=== PATIENT | male | born 1965 | race Caucasian/White ===

== ENCOUNTER 2021-06-26 20:46 | Inpatient (IN) | payer MEDICAID ==
[~2021-06-26] VITALS: Ht 165.1 cm; Wt 59.0 kg
--- NOTE | 2021-06-26 20:48 | NUR ---
BIBA TAKEN TO BED #1
[2021-06-26 20:50] VITALS: BP 108/79
--- NOTE | 2021-06-26 20:50 | NUR ---
BIBA TO BED 1 WITH C/O GENERAL WEAKNESS X 2 DAYS. WAS SEEN AT [facility] [place] 2 DAYS AGO. PT DOES NOT RECALL IF HE WAS TESTED FOR COVID AND EXPLAINS HE HAS NOT RECEIVED COVID VACCINE. PATIENT IS ALERT AND ORIENTED AND DENIES PAIN OR DISCOMFORT AT THIS TIME. ATTACHED TO CM = ST WITHOUT ECTOPY. O2 SAT 92% ON R/A. PER EMT PT HAS HAD DECREASED APPETITE, DRINKING ONLY GATORADE. PMH : DENIES NKDA
[2021-06-26] MEDS ORDERED: NACL 0.9% 1,000 ML IV ONE (21:05)
--- NOTE | 2021-06-26 21:07 | NUR ---
DR HILL AT BEDSIDE FOR EXAM
[2021-06-26] MEDS ORDERED: DEXAMETHASONE 10 MG/ML VIAL IVP ONE (21:10)
[2021-06-26 22:04] LABS: BASOPHILS % (AUTO) 0.2 % (0.0-2.0); HEMATOCRIT 44.4 % (36-52); HEMOGLOBIN 15.3 g/dL (12.0-18.0); LYMPHOCYTES # (AUTO) 0.6 K/uL (2.0-11.5); LYMPHOCYTES % (AUTO) 8.4 % (20.5-51.1); MEAN CORPUSCULAR HEMOGLOBIN 32 pg (27-31); MEAN CORPUSCULAR HGB CONC 35 g/dL (33-37); MEAN CORPUSCULAR VOLUME 93.2 fL (80-94); MONOCYTES # (AUTO) 0.6 K/uL (0.8-1.0); MONOCYTES % (AUTO) 7.5 % (1.7-9.3); NEUTROPHILS # (AUTO) 6.3 K/uL (1.8-7.7); NEUTROPHILS % (AUTO) 83.9 % (42.2-75.2); PLATELET COUNT (AUTO) 310 K/uL (140-450); RED BLOOD CELL COUNT(AUTO) 4.77 MIL/uL (4.20-6.10); RED CELL DISTRIBUTION WIDTH 13.6 % (11.6-13.7); WHITE BLOOD COUNT (AUTO) 7.4 K/uL (4.8-10.8)
[2021-06-26] MEDS ORDERED: AZITHROMYCIN 250 MG TAB PO ONE (22:10)
[2021-06-26] MEDS ORDERED: cefTRIAXone 2,000 MG in DEXTROSE 5% 100 ML IV ONE (22:10)
[2021-06-26] MEDS ORDERED: cefTRIAXone 2,000 MG VIAL ONE (22:17)
[2021-06-26 22:18] LABS: ALBUMIN 2.7 g/dL (3.4-5.0); ANION GAP 11.2 (8-16); CREATININE 1.2 mg/dL (0.6-1.3); POTASSIUM 3.2 mmol/L (3.5-5.1); TOTAL BILIRUBIN 0.7 mg/dL (0.0-1.0)
--- NOTE | 2021-06-26 23:00 | NUR ---
RESTING IN BED WITH EYES CLOSED. O2 CONTINUES AT 3L/N/C
[2021-06-27] MEDS ORDERED: MAGNESIUM OXIDE 400 MG TAB PO PRN (00:10)
[2021-06-27] MEDS ORDERED: MAG SULF 2000 MG/WATER PREMIX 50 ML IV PRN (00:10)
[2021-06-27] MEDS ORDERED: HYDROcodone/APAP 5/325 MG 1 TAB TAB PO PRN (00:10)
[2021-06-27] MEDS ORDERED: ACETAMINOPHEN 325 MG TAB PO PRN (00:10)
[2021-06-27] MEDS ORDERED: ONDANSETRON 4 MG/2 ML VIAL IVP PRN (00:10)
[2021-06-27] MEDS ORDERED: remdesivir COMMUNICATION ORDER 1 EA MISC MC PRN (00:30)
--- NOTE | 2021-06-27 02:00 | NUR ---
RESTING WITH EYES CLOSED. RESPIRATIONS REGULAR AND UNLABORED.
--- NOTE | 2021-06-27 06:00 | NUR ---
AWAKENED WITH EASE. VSS. DENIES PAIN OR DISCOMFORT. READILY RETURNS TO RESTING WITH EYES CLOSED
[2021-06-27] MEDS ORDERED: remdesivir CLINICAL MONITORING 1 EA MISC MC PRN (07:30)
--- NOTE | 2021-06-27 08:04 | NUR ---
Patient will be admitted to care of Dr Asher. Admited to TELE. Will go to room 114. Belongings list completed. Report to Janna APODACA.
[2021-06-27 08:14] VITALS: BP 117/67
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
--- NOTE | 2021-06-27 08:52 | NUR ---
PATIENT HAS BEEN SCREENED AND CATEGORIZED HIGH NUTRITION RISK. PATIENT WILL BE SEEN WITHIN 1-2 DAYS OF ADMISSION. 06/27/21-06/28/[address]
--- NOTE | 2021-06-27 09:34 | NUR ---
PT O2 SATURATION NOTED TO BE 84 ON 6L NC. NOTIFED THE MD.
--- NOTE | 2021-06-27 09:38 | NUR ---
PT REMOVED NC WHICH RESULTED IN THE DECREASE OF O2 SATURATION. EDUCATION PROVIDED TO THE PT ON THE IMPORTANCE OF KEEPING HIS OXYGEN ON. PT VERBALIZED UNDERSTANDING AND STATED HE WILL KEEP THE O2 ON.
--- NOTE | 2021-06-27 09:40 | NUR ---
MERARY MEDICATION ADMINISTERED PER MD ORDER, PT TOLERATED ADMINISTRATION, PT EDUCATION PROVIDED. PT VERBALIZED UNDERSTANDING. AT BEDSIDE ASSESSING.
[2021-06-27] MEDS: DOCUSATE SODIUM 100 MG GELCAP PO SCH (09:58)
[2021-06-27] MEDS: DEXAMETHASONE 4 MG/ML VIAL IVP SCH (09:59)
[2021-06-27] MEDS: APIXABAN 2.5 MG TAB PO SCH ×2 (10:00→21:21)
--- NOTE | 2021-06-27 10:24 | NUR ---
PT O2 SAT INCREASED TO 94% ON 6L NC. PT IS ASLEEP IN BED WITH NO ACUTE S/S OF DISTRESS.
[2021-06-27] MEDS ORDERED: REMDESIVIR. 200 MG in NACL 0.9% 100 ML IV SCH (11:00)
--- NOTE | 2021-06-27 11:25 | NUR ---
CALLED PHARMACY TO NOTIFY THEM PT IS STILL WAITING ON MERARY MEDICATION.
--- NOTE | 2021-06-27 11:58 | NUR ---
MERARY MEDICATION ADMINISTERED PER MD ORDER. PT EDUCATION PROVIDED, AND PT VERBALIZED UNDERSTANDING. PT IV IS PATENT AND INTACT. PT SATING AT 93% ON 6L NC. ALL SAFETY MEASURES IN PLACE, CALL LIGHT WITHIN REACH. WILL CONTINUE TO MONITOR.
[2021-06-27 12:00] VITALS: BP 120/90
--- NOTE | 2021-06-27 13:41 | NUR ---
PT IS RESTING IN BED WITH NO ACUTE S/S OF DISTRESS. PT IS SATING AT 94% ON 6LNC. ALL SAFETY MEASURES IN PLACE, WILL CONTINUE TO MONITOR.
--- NOTE | 2021-06-27 14:24 | NUR ---
06/27/21 RD INITIAL ASSESSMENT COMPLETED PLEASE REFER TO NUTRITION ASSESSMENT UNDER CARE ACTIVITY FOR ESTIMATED NUTRITIONAL NEEDS. 1. CONTINUE CARDIAC DIET TOLERATED 2. RECOMMEND GLUCERNA 2X DAY - THIS WILL PROVIDE AN ADDITIONAL 220 KCAL AND 10 G PROTEIN EACH. 3. IF PT CONTINUES TO HAVE LOW PO INTAKE <50% CONSIDER ENTERAL NUTRITION. 4. RD TO FOLLOW-UP 3-5 DAYS, MODERATE RISK ALLYSSA RODGERS RD
--- NOTE | 2021-06-27 15:00 | NUR ---
PT BECAME SINUS TACHY 130'S WHILE AMBULATING TO THE BEDSIDE COMMODE. WILL CONTINUE TO MONITOR.
[2021-06-27 16:00] VITALS: BP 124/82
--- NOTE | 2021-06-27 16:57 | NUR ---
PT ASLEEP, NO SIGN OF DISTRESS, IV ON SALINE LOCK, SAT 94% SAFETY MEASURES ON PLACE, CALLS LIGHT WITHIN REACH
--- NOTE | 2021-06-27 19:17 | NUR ---
PT ENDORSED TO HANDER IN NURSE FOR CONTINUITY OF CARE, PT IS STABLE.
--- NOTE | 2021-06-27 19:18 | NUR ---
RECEIVED REPORT FROM AM NURSE. PATIENT IN BED RESTING WITH O2 AT 8LPM VIA NC TOLERATING WELL. NO SOB NOTED ALL SAFETY PRECAUTIONS ARE IN PLACE. CALL LIGHT WITHIN REACH. WILL CONTINUE TO MONITOR.
[2021-06-27 20:00] VITALS: BP 132/90
--- NOTE | 2021-06-27 21:22 | NUR ---
ROCEPHINE GIVEN ORDERED.
[2021-06-27] MEDS: AZITHROMYCIN 500 MG in DEXTROSE 5% 250 ML IV SCH (22:19)
--- NOTE | 2021-06-27 22:25 | NUR ---
IV INFILTRATED, INSERTED PERIPHERAL IV ON THE RIGHT FOREARM.
[2021-06-28] VITALS: BP 127/89
[2021-06-28 04:00] VITALS: BP 130/86
--- NOTE | 2021-06-28 04:20 | NUR ---
PATIENT IS KEPT CLEAN, DRY AND COMFORTABLE. NEEDS ATTENDED TO.
--- NOTE | 2021-06-28 05:00 | NUR ---
PATIENT IS DESATTING WITH O2 AT 10 L VIA MASK. PUT PT TO NON REBREATHER MASK WITH O2 SAT OF 99%.
[2021-06-28 07:07] LABS: BASOPHILS % (AUTO) 0.2 % (0.0-2.0); HEMATOCRIT 41.3 % (36-52); HEMOGLOBIN 14.3 g/dL (12.0-18.0); LYMPHOCYTES # (AUTO) 0.8 K/uL (2.0-11.5); LYMPHOCYTES % (AUTO) 9.1 % (20.5-51.1); MEAN CORPUSCULAR HEMOGLOBIN 32 pg (27-31); MEAN CORPUSCULAR HGB CONC 35 g/dL (33-37); MEAN CORPUSCULAR VOLUME 91.8 fL (80-94); MONOCYTES # (AUTO) 0.9 K/uL (0.8-1.0); MONOCYTES % (AUTO) 9.8 % (1.7-9.3); NEUTROPHILS # (AUTO) 7.4 K/uL (1.8-7.7); NEUTROPHILS % (AUTO) 80.9 % (42.2-75.2); PLATELET COUNT (AUTO) 383 K/uL (140-450); RED BLOOD CELL COUNT(AUTO) 4.49 MIL/uL (4.20-6.10); RED CELL DISTRIBUTION WIDTH 13.4 % (11.6-13.7); WHITE BLOOD COUNT (AUTO) 9.2 K/uL (4.8-10.8)
--- NOTE | 2021-06-28 07:10 | NUR ---
RECEIVED REPORT FROM CAMPAIGN CONSULTANT NURSE FOR CONTINUITY OF CARE. PATIENT SLEEPING. BREATHING EVEN AND UNLABORED. PATIENT ON 15 L NON REBREATHER MASK SATING AT 96%. L FA 18G SL. ALL SAFETY MEASURES IN PLACE. WILL CONTINUE TO MONITOR.
[2021-06-28 07:20] LABS: ALBUMIN 2.4 g/dL (3.4-5.0); ANION GAP 11.2 (8-16); CARBON DIOXIDE 31.3 mmol/L (21-32); CREATININE 0.9 mg/dL (0.6-1.3); POTASSIUM 3.5 mmol/L (3.5-5.1); TOTAL BILIRUBIN 0.4 mg/dL (0.0-1.0)
--- NOTE | 2021-06-28 07:30 | NUR ---
ENDORSED TO AM NURSE FOR CONTINUITY OF CARE. PT IS STABLE.
[2021-06-28 08:00] VITALS: BP 136/84
[2021-06-28] MEDS: DEXAMETHASONE 4 MG/ML VIAL IVP SCH (08:35)
[2021-06-28] MEDS: DOCUSATE SODIUM 100 MG GELCAP PO SCH (08:36)
[2021-06-28] MEDS: APIXABAN 2.5 MG TAB PO SCH ×2 (08:36→21:38)
--- NOTE | 2021-06-28 08:36 | NUR ---
PATIENT AWAKE AND ALERT. PATIENT ON 15L VIA NON-REBREATHER MASK PATIENT STATING AT 92 %. ROUTINE MEDICATION GIVEN. ALL SAFETY MEASURES IN PLACE. WILL CONTINUE TO MONITOR.
--- NOTE | 2021-06-28 08:45 | NUR ---
NOTIFY DR. BRAY OF PATIENT STATUS AND REQUEST RT EVAL.
--- NOTE | 2021-06-28 09:00 | NUR ---
READING PROFESSOR CALLED TO BESIDE TO EVALUATE DESCENDING SATURATION LOC ASLEEP EASILY AWAKENS BREATH SOUNDS CLEAR BILATERAL GOOD CHEST RISE AIRWAY PATENT SUPPLEMENTAL OXYGEN AT 15 LPM VIA NON REBREATHER PATIENT PRESENTING WITH INTERMITTENT "WAVERING" OF SATURATION OF 85%-95% AND RR 28-36 BPM PULSE OXIMETER PLACEMENT "OK" CHANGED READING PROFESSOR RECOMMENDING TO JAIR/RN CHANGE TO VAPOTHERM HIGH FLOW NASAL CANNULA; OXYGEN SATURATION GREATER THAN 90%; MDI OR HHN THERAPY Q4 PRN FOR SOB/WHEEZE FOREMENTIONED RN TO CONTACT DR. ANA MARIA BRAY TO CONVEY READING PROFESSOR RECOMMENDATIONS
[2021-06-28] MEDS ORDERED: ALBUTEROL HFA MDI 90 MCG/ACTUATION 8 GM INH PRN (09:05)
--- NOTE | 2021-06-28 10:36 | NUR ---
PATIENT AWAKE AND ALERT. PATIENT ON 15L VIA NON REBREATHER MASK. PATIENT SATING AT 95%. ALL SAFETY MEASURES IN PLACE. CALL LIGHT WITHIN REACH. WILL CONTINUE TO MONITOR.
--- NOTE | 2021-06-28 10:52 | NUR ---
PLACED ON A VAPOTHERM HIGH FLOW NASAL CANNULA NOTED PLUGGED INTO RED OUTLET WITH COMPRESSOR ON TOLERATING WELL WITHOUT ADVERSE REACTIONS NOTED JAIR/RN NOTIFIED
[2021-06-28] MEDS: REMDESIVIR. 100 MG in NACL 0.9% 100 ML IV SCH (11:53)
[2021-06-28 12:00] VITALS: BP 125/83
--- NOTE | 2021-06-28 12:16 | NUR ---
PATIENT AWAKE. PATIENT ON HI-FLOW 32% TEMP 34. NO ACUTE DISTRESS NOTED. PATIENT O2 SATING AT 98%. ALL SAFETY MEASURES IN PLACE. CALL LIGHT WITHIN REACH. WILL CONTINUE TO MONITOR.
--- NOTE | 2021-06-28 14:52 | NUR ---
PATIENT AWAKE. NO ACUTE DISTRESS NOTED. PATIENT O2 SATING AT 96%. PATIENT ON HI-FLOW 32% TEMP 34. ALL SAFETY MEASURES IN PLACE. CALL LIGHT WITHIN REACH. WILL CONTINUE TO MONITOR
--- NOTE | 2021-06-28 15:47 | NUR ---
PATIENT UPSET THAT HE WANTS TO GO HOME. PATIENT EDUCATED ON THE NEED TO STAY IN HOSPITAL HE NEEDS OXYGEN. PATIENT CONTINUE TO ASK TO GO HOME. ON PHONE. PATIENT ON HI FLOW 32% PATIENT SATING AT 89% RT. WILL BE NOTIFIED
[2021-06-28 16:00] VITALS: BP 133/94
--- NOTE | 2021-06-28 16:00 | NUR ---
PATIENT NOTED TO HAVE CALMED DOWN. PATIENT WATCHING VIDEO ON HIS PHONE PATIENT ON HI FLOW 32% STATING AT 92%. ALL SAFETY MEASURES IN PLACE. CALL LIGHT WITHIN REACH. WILL CONTINUE TO MONITOR.
--- NOTE | 2021-06-28 16:27 | NUR ---
PATIENT SLEEPING. NO ACUTE DISTRESS NOTED. PATIENT ON HI FLOW 32%. PATIENT SATING AT 95% O2. CALL LIGHT WITHIN REACH ALL SAFETY MEASURES IN PLACE. WILL CONTINUE TO MONITOR.
--- NOTE | 2021-06-28 18:16 | NUR ---
PATIENT AWAKE. NO ACUTE DISTRESS NOTED. PATIENT ON HI FLOW 32%. PATIENT SATING AT 93%. PATIENT HAVING DINNER. CALL LIGHT WITHIN REACH. WILL CONTINUE TO MONITOR.
--- NOTE | 2021-06-28 19:10 | NUR ---
ENDORSED TO SHEAR OPERATOR NURSE FOR CONTINUITY OF CARE. PATIENT STABLE. ALL SAFETY MEASURES IN PLACE.
--- NOTE | 2021-06-28 19:15 | NUR ---
NO SOB NOTED AT THIS TIME. WILL CONTINUE TO MONITOR.
--- NOTE | 2021-06-28 19:15 | NUR ---
RECEIVED REPORT FROM AM NURSE FOR CONTINUITY OF CARE. PATIENT ON HI FLOW O2 WITH FIO2 AT 32 % TOLERATING WELL. ALL SAFETY MEASURES ARE IN PLACE. CALL LIGHT WITHIN REACH.
[2021-06-28 20:00] VITALS: BP 126/82
--- NOTE | 2021-06-28 21:38 | NUR ---
ADMINISTERED SCHEDULED MEDS ORDERED . PATIENT PULLED OUT HIS IV , STARTED ANOTHER IV LINE ON THE RIGHT FOREARM. TOLERATED WELL. DENIES PAIN AT THIS TIME. CALL LIGHT WITHIN REACH.
[2021-06-28] MEDS: AZITHROMYCIN 500 MG in DEXTROSE 5% 250 ML IV SCH (22:33)
[2021-06-29] VITALS: BP 130/78
--- NOTE | 2021-06-29 01:30 | NUR ---
PATIENT REMOVED HIS TELE BOX, RECONNECTED.
--- NOTE | 2021-06-29 02:17 | NUR ---
CALLED TO BEDSIDE DUE TO PT DESATURATING. CHECKED ON PT AND PT WAS CONSTANTLY MOVING HIS HAND AND THE SPO2 PROBE IS ALMOST OFF FROM FINGER. PLACED A NEW PROBE ON. SPO2 96%. RN NOTIFIED.
[2021-06-29 04:00] VITALS: BP 140/90
[2021-06-29 07:00] LABS: BASOPHILS % (AUTO) 0.1 % (0.0-2.0); HEMATOCRIT 45.6 % (36-52); HEMOGLOBIN 15.3 g/dL (12.0-18.0); LYMPHOCYTES # (AUTO) 1.3 K/uL (2.0-11.5); LYMPHOCYTES % (AUTO) 10.3 % (20.5-51.1); MEAN CORPUSCULAR HEMOGLOBIN 31 pg (27-31); MEAN CORPUSCULAR HGB CONC 34 g/dL (33-37); MEAN CORPUSCULAR VOLUME 93.6 fL (80-94); MONOCYTES # (AUTO) 0.5 K/uL (0.8-1.0); MONOCYTES % (AUTO) 3.8 % (1.7-9.3); NEUTROPHILS # (AUTO) 10.4 K/uL (1.8-7.7); NEUTROPHILS % (AUTO) 85.8 % (42.2-75.2); PLATELET COUNT (AUTO) 587 K/uL (140-450); RED BLOOD CELL COUNT(AUTO) 4.87 MIL/uL (4.20-6.10); RED CELL DISTRIBUTION WIDTH 13.7 % (11.6-13.7); WHITE BLOOD COUNT (AUTO) 12.1 K/uL (4.8-10.8)
--- NOTE | 2021-06-29 07:02 | NUR ---
ENDORSED TO AM NURSE FOR CONTINUITY OF CARE. PAT IS STABLE.
--- NOTE | 2021-06-29 07:05 | NUR ---
RECEIVE REPORT FROM DIRECTOR OF REIMBURSEMENT NURSE FOR CONTINUITY OF CARE. PATIENT HI FLOW MASK REMOVED BY PATIENT. PATIENT EDUCATED ON THE IMPORTANCE OF LEAVING O2 ON. PATIENT VERBALIZE UNDERSTANDING. ALL SAFETY MEASURES IN PLACE. WILL CONTINUE TO MONITOR.
[2021-06-29 07:16] LABS: ALBUMIN 2.7 g/dL (3.4-5.0); ANION GAP 13.2 (8-16); CARBON DIOXIDE 31.9 mmol/L (21-32); POTASSIUM 3.1 mmol/L (3.5-5.1); TOTAL BILIRUBIN 0.4 mg/dL (0.0-1.0)
--- NOTE | 2021-06-29 07:55 | NUR ---
PATIENT ON HI FLOW 40 L PATIENT SATING AT 86% RT NOTIFIED.
[2021-06-29 08:00] VITALS: BP 114/93
[2021-06-29] MEDS: DEXAMETHASONE 4 MG/ML VIAL IVP SCH (08:18)
[2021-06-29] MEDS: DOCUSATE SODIUM 100 MG GELCAP PO SCH (08:18)
[2021-06-29] MEDS: APIXABAN 2.5 MG TAB PO SCH ×2 (08:21→20:29)
--- NOTE | 2021-06-29 09:04 | NUR ---
PATIENT SLEEPING. NO ACUTE DISTRESS NOTED. PATIENT ON HI FLOW 40 L. PATIENT SATING ON 94%. ALL SAFETY MEASURES IN PLACE. CALL LIGHT WITHIN REACH. WILL CONTINUE TO MONITOR.
--- NOTE | 2021-06-29 10:40 | NUR ---
PATIENT REMOVED HI FLOW MASK AND LEADS. PATIENT SATING AT 88%. PATIENT EDUCATION REINFORCED. PATIENT VERBALIZE UNDERSTANDING.
--- NOTE | 2021-06-29 10:55 | NUR ---
PATIENT SLEEPING. HI FLOW 40L PATIENT SATING AT 95%. ALL SAFETY MEASURES IN PLACE. CALL LIGHT WITHIN REACH WILL CONTINUE TO MONITOR.
[2021-06-29 12:00] VITALS: BP 128/84
--- NOTE | 2021-06-29 12:15 | NUR ---
PATIENT SITTING UP IN BED. PATIENT HAVING LUNCH. PATIENT ON HI FLOW 40L. PATIENT SATING AT 92% ALL SAFETY MEASURES IN PLACE. CALL LIGHT WITHIN REACH. WILL CONTINUE TO MONITOR .
[2021-06-29] MEDS: REMDESIVIR. 100 MG in NACL 0.9% 100 ML IV SCH (12:23)
--- NOTE | 2021-06-29 13:17 | NUR ---
PATIENT SLEEPING. NO ACUTE DISTRESS NOTED. PATIENT ON HI FLOW 40 L. PATIENT SATING AT 99%. ALL SAFETY MEASURES IN PLACE. CALL LIGHT WITHIN REACH. WILL CONTINUE TO MONITOR.
--- NOTE | 2021-06-29 15:28 | NUR ---
PATIENT AWAKE. BREATHING EVEN AND UNLABORED. PATIENT ON HI FLOW 40L SATING O2 AT 98%. ALL SAFETY MEASURES IN PLACE. CALL LIGHT WITHIN REACH. WILL CONTINUE TO MONITOR.
[2021-06-29 16:00] VITALS: BP 116/81
--- NOTE | 2021-06-29 17:02 | NUR ---
PATIENT SLEEPING. EASILY AWAKEN WHEN CALLED BY NAME. PATIENT ON HI FLOW 40L SATING O2 AT 99%. ALL SAFETY MEASURES IN PLACE. CALL LIGHT WITHIN REACH. WILL CONTINUE TO MONITOR.
--- NOTE | 2021-06-29 18:52 | NUR ---
PATIENT SATING AT 86% ON HI FLOW 40L. PULSE OX CHANGED. PATIENT CONTINUE TO HAVE O2 SAT OF 86% RT NOTIFIED
--- NOTE | 2021-06-29 18:57 | NUR ---
RT ADVISE TO APPLY NON REBREATHER MASK UNTIL THEY ARE ABLE TO COME ASSESS PATIENT. PATIENT ON 15L VIA NON REBREATHER MASK PATIENT SATING AT 92%. WILL CONTINUE TO MONITOR.
--- NOTE | 2021-06-29 19:15 | NUR ---
ENDORSED TO LIVESTOCK FEEDER NURSE FOR CONTINUITY OF CARE. PATIENT STABLE. ALL SAFETY MEASURES IN PLACE.
--- NOTE | 2021-06-29 19:16 | NUR ---
RECEIVED PATIENT FROM AM NURSE FOR CONTINUITY OF CARE. PATIENT IS A/A/O X4. RESPIRATORY EVEN AND UNLABORED, ON HI FLOW 40L AND NON-REBREATHER MASK 15L, O2 SAT 95%. NO SIGN OF DISTRESS NOTED. SKIN WARM, DRY, NON DIAPHORETIC. IV ON RIGHT FA 22G, INTACT AND PATENT, ON SALINE LOCK. PATIENT CONTINENT, ABLE TO USE URINAL. DENIES ANY PAIN OR DISCOMFORT. ABLE TO MAKE NEEDS KNOW. PLAN OF CARE DISCUSSED, PATIENT VERBALIZED UNDERSTANDING. PRECAUTION IN PLACE. CALL LIGHT WITHIN REACH WILL CONTINUE TO MONITOR.
[2021-06-29 20:00] VITALS: BP 120/79
--- NOTE | 2021-06-29 20:17 | NUR ---
PT WAS SEEN AND ASSESSED. PT ON HIGH FLOW NASAL CANNULA 40L, 100% plus NRB MASK. SPO2 95%. WILL CONTINUE TO MONITOR PT.
--- NOTE | 2021-06-29 20:29 | NUR ---
SCHEDULE MEDICATION GIVEN WITH EDUCATION. PATIENT VERBALIZED UNDERSTANDING. PATIENT TOLERATED WELL. NO SIGN OF DISTRESS NOTED. PRECAUTION IN PLACE. CALL LIGHT WITHIN REACH. WILL CONTINUE TO MONITOR.
--- NOTE | 2021-06-29 21:14 | NUR ---
PATIENT'S CALLED. UPDATED PATIENT'S STATUS. ALL QUESTIONS ANSWERED. WILL CONTINUE TO UPDATE.
--- NOTE | 2021-06-29 21:30 | NUR ---
SCHEDULE ANTIBIOTIC GIVEN WITH EDUCATION, PATIENT TOLERATED WELL. NO SIGN OF DISTRESS NOTED. ALL SAFETY MEASURES IN PLACE. CALL LIGHT WITHIN REACH WILL CONTINUE TO MONITOR.
[2021-06-29] MEDS: AZITHROMYCIN 500 MG in DEXTROSE 5% 250 ML IV SCH (22:43)
[2021-06-30] VITALS: BP 129/79
--- NOTE | 2021-06-30 | NUR ---
VITAL SIGNS WITHIN NORMAL LIMIT. PATIENT IS SLEEPING, NO SING OF DISTRESS NOTED. PRECAUTION IN PLACE. CALL LIGHT WITHIN REACH. WILL CONTINUE TO MONITOR.
--- NOTE | 2021-06-30 02:00 | NUR ---
PATIENT IS SLEEPING, CHEST RISE AND FALL, NO SIGN OF DISTRESS NOTE. O2 SAT 95% ON BIPAP. PRECAUTION IN PLACE. CALL LIGHT WITHIN REACH. WILL CONTINUE TO MONITOR.
--- NOTE | 2021-06-30 03:51 | NUR ---
RT AT BEDSIDE, PATIENT IS STABLE. PRECAUTION IN PLACE. CALL LIGHT WITHIN REACH. WILL CONTINUE TO MONITOR.
[2021-06-30 04:00] VITALS: BP 121/76
--- NOTE | 2021-06-30 06:10 | NUR ---
PATIENT IS DESATURATING AFTER CHANGING AND REPOSITION PATIENT. CONTACTED RT.
--- NOTE | 2021-06-30 06:10 | NUR ---
CALLED TO BEDSIDE DUE TO PT DESATURATING. REPOSITION SPO2 PROBE POSITION. SPO2 92%. WILL CONTINUE TO MONITOR
[2021-06-30 07:19] LABS: BASOPHILS % (AUTO) 0.1 % (0.0-2.0); HEMATOCRIT 41.1 % (36-52); HEMOGLOBIN 13.9 g/dL (12.0-18.0); LYMPHOCYTES # (AUTO) 0.9 K/uL (2.0-11.5); LYMPHOCYTES % (AUTO) 7.8 % (20.5-51.1); MEAN CORPUSCULAR HEMOGLOBIN 32 pg (27-31); MEAN CORPUSCULAR HGB CONC 34 g/dL (33-37); MONOCYTES # (AUTO) 0.4 K/uL (0.8-1.0); MONOCYTES % (AUTO) 3.4 % (1.7-9.3); NEUTROPHILS # (AUTO) 10.2 K/uL (1.8-7.7); NEUTROPHILS % (AUTO) 88.7 % (42.2-75.2); PLATELET COUNT (AUTO) 491 K/uL (140-450); RED BLOOD CELL COUNT(AUTO) 4.42 MIL/uL (4.20-6.10); RED CELL DISTRIBUTION WIDTH 13.4 % (11.6-13.7); WHITE BLOOD COUNT (AUTO) 11.5 K/uL (4.8-10.8)
--- NOTE | 2021-06-30 07:21 | NUR ---
ENDORSED PATIENT TO AM NURSE FOR CONTINUITY OF CARE. PATIENT IS STABLE.
[2021-06-30 07:24] LABS: ALBUMIN 2.2 g/dL (3.4-5.0); ANION GAP 10.9 (8-16); CREATININE 0.8 mg/dL (0.6-1.3); MAGNESIUM 1.8 mg/dL (1.8-2.4); TOTAL BILIRUBIN 0.6 mg/dL (0.0-1.0)
--- NOTE | 2021-06-30 07:26 | NUR ---
RECIEVED REPROT FROM NIGHTSHIFT NURSE. PT RESTING IN BED. ABLE TO MAKE NEEDS KNOWN. RESPIRATIONS DEEP AND LABORED WITH INTERMITTENT COUGHING. PT DESATS TO 86% WHEN COUGHING. PT ON HIGH FLOW 40L AT 100% FIO2 AND NRM 15L. SKIN VERY WARM AND DRY TO TOUCH. SAFETY MEASURES IN PLACE. WILL CONTINUE TO MONITOR
[2021-06-30 08:00] VITALS: BP 110/74
[2021-06-30 08:19] LABS: POTASSIUM 2.9 mmol/L (3.5-5.1)
--- NOTE | 2021-06-30 09:30 | NUR ---
ADMINISTERED SCHED MED PRESCRIBED PER MD ORDER. PT TOLERATED WELL. PT HAS HIGH FEVER, PRN TYLENOL ADMINISTERED PRESCRIBED PER MD ORDER. MEDICATION EDUCATION PERFORMED. PT VERBALIZED UNDERSTANDING. SAFETY MEASURES IN PLACE. WILL CONTINUE TO MONITOR
[2021-06-30] MEDS: APIXABAN 2.5 MG TAB PO SCH ×2 (09:42→21:18)
[2021-06-30] MEDS: DOCUSATE SODIUM 100 MG GELCAP PO SCH (09:47)
[2021-06-30] MEDS: DEXAMETHASONE 4 MG/ML VIAL IVP SCH (09:50)
[2021-06-30] MEDS: REMDESIVIR. 100 MG in NACL 0.9% 100 ML IV SCH (11:03)
--- NOTE | 2021-06-30 11:05 | NUR ---
ADMINISTERED SCHED MED PRESCRIBED PER MD ORDER. PT TOLERATED WELL. MEDICATION EDUCATION PERFORMED. PT VERBALIZED UNDERSTANDING. SAFETY MEASURES IN PLACE. WILL CONTINUE TO MONITOR
[2021-06-30 12:00] VITALS: BP 104/73
[2021-06-30] MEDS: KCL 20 MEQ/WATER INJ PREMIX 200 ML IV PRN (12:29)
--- NOTE | 2021-06-30 13:15 | NUR ---
PT CALLED AND NEEDED TO USE BEDPAN. PT HAD BOWEL MOVEMENT. CLEANED UP PATIENT. PT TOLERATED WELL. SAFETY MEASURES IN PLACE. WILL CONTINUE TO MONITOR
--- NOTE | 2021-06-30 15:04 | NUR ---
PATIENT NEEDS ASSISTANCE USING URINAL. ASSISTANCE PROVIDED. SAFETY MEASURES IN PLACE. WILL CONTINUE TO MONITOR
[2021-06-30 16:00] VITALS: BP 108/64
--- NOTE | 2021-06-30 16:50 | NUR ---
PT RESTING IN BED. NO SIGNS OF DISTRESS. SAFETY MEASURES IN PLACE. WILL CONTINUE TO MONITOR
--- NOTE | 2021-06-30 17:06 | NUR ---
PT TRIED TO TAKE OFF HIGH FLOW NASAL CANNULA. EDUCATED PT ON OXYGEN THERAPY. PT VERBALIZED UNDERSTANDING. SAFETY MEASURES IN PLACE. WILL CONTINUE TO MONITOR
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
--- NOTE | 2021-06-30 18:01 | NUR ---
SPOKE WITH SON [phone] AND GAVE UPDATE. SAFETY MEASURES IN PLACE. WILL CONTINUE TO MONITOR
--- NOTE | 2021-06-30 19:25 | NUR ---
ENDORSED TO NIGHTSHIFT NURSE FOR CONTINUITY OF CARE
--- NOTE | 2021-06-30 19:26 | NUR ---
RECEIVED PATIENT FROM AM NURSE FOR CONTINUITY OF CARE. PATIENT IS RESTING IN BED, AROUSABLE TO VOICE. RESPIRATORY EVEN AND UNLABORED, ON HI FLOW 40L, O2 SAT 98%. NO SIGN OF DISTRESS AT THIS TIME. SKIN WARM, DRY, NON DIAPHORETIC. IV ON RIGHT FA 22G, INTACT AND PATENT, SALINE LOCK. URINAL AT BEDSIDE. PATIENT DENIES ANY PAIN OR DISCOMFORT. ABLE TO MAKE NEEDS KNOWN. PLAN OF CARE DISCUSSED, PATIENT VERBALIZED UNDERSTANDING. PRECAUTION IN PLACE. CALL LIGHT WITHIN REACH. WILL CONTINUE TO MONITOR.
[2021-06-30 20:00] VITALS: BP 111/82
--- NOTE | 2021-06-30 20:30 | NUR ---
PT SLEEPING COMFORTABLY ON HFNC ( 40L 100% 34*C ) W/ NO DISTRESS NOTED CURRENT SPO2 97% HR 87 f 18 HFNC PLUGGED INTO RED OUTLET WILL CONTINUE TO MONITOR
--- NOTE | 2021-06-30 22:03 | NUR ---
RECEIVED CALL FROM HIS , SON, ALL QUESTIONS ANSWERED. WILL CONTINUE TO UPDATE.
[2021-06-30] MEDS: AZITHROMYCIN 500 MG in DEXTROSE 5% 250 ML IV SCH (22:18)
--- NOTE | 2021-06-30 23:28 | NUR ---
PT SLEEPING COMFORTABLY FIO2 TITRATED TO 95% SPO2 POST TITRATION 97% WILL CONTINUE TO MONITOR
--- NOTE | 2021-06-30 23:31 | NUR ---
PT SLEEPING COMFORTABLY ON HFNC 100% W/ SPO2 98% FIO2 TITRATED TO 95% AND TOLERATING WELL AT THIS TIME SPO2 97% 5 MIN POST TITRATION
[2021-07-01] VITALS (18 sets, daily range): BP systolic 91–147; BP diastolic 53–95
--- NOTE | 2021-07-01 | NUR ---
PATIENT IS SLEEPING, CHEST RISE AND FALL NOTED, NO SIGN OF RESPIRATORY DISTRESS, O2 SAT 97%. PRECAUTION IN PLACE. CALL LIGHT WITHIN REACH. WILL CONTINUE TO MONITOR.
--- NOTE | 2021-07-01 02:00 | NUR ---
PATIENT IS SLEEPING, CHEST RISE AND FALL NOTED, NO SIGN OF RESPIRATORY DISTRESS, O2 SAT 98%. PRECAUTION IN PLACE. CALL LIGHT WITHIN REACH. WILL CONTINUE TO MONITOR.
--- NOTE | 2021-07-01 03:49 | NUR ---
PT CONTINUES TO REST COMFORTABLY ON HFNC 40L 95% W/ CURRENT SPO2 93% HR 80 WILL CONTINUE TO MONITOR
--- NOTE | 2021-07-01 04:00 | NUR ---
ROUND CHECK. PATIENT IS SLEEPING, CHEST RISE AND FALL, NO SIGN OF DISTRESS NOTED. O2 SAT 97%. PRECAUTION IN PLACE. CALL LIGHT WITHIN REACH. WILL CONTINUE TO MONITOR.
--- NOTE | 2021-07-01 07:25 | NUR ---
ENDORSED PATIENT TO AM NURSE FOR CONTINUITY OF CARE. PATIENT IS STABLE.
[2021-07-01 07:28] LABS: BASOPHILS % (AUTO) 0.1 % (0.0-2.0); EOSINOPHILS % (AUTO) 0.3 % (0.0-4.0); HEMATOCRIT 40.4 % (36-52); HEMOGLOBIN 13.8 g/dL (12.0-18.0); LYMPHOCYTES # (AUTO) 0.6 K/uL (2.0-11.5); LYMPHOCYTES % (AUTO) 3.7 % (20.5-51.1); MEAN CORPUSCULAR HEMOGLOBIN 32 pg (27-31); MEAN CORPUSCULAR HGB CONC 34 g/dL (33-37); MEAN CORPUSCULAR VOLUME 92.6 fL (80-94); MONOCYTES # (AUTO) 0.8 K/uL (0.8-1.0); MONOCYTES % (AUTO) 5.1 % (1.7-9.3); NEUTROPHILS # (AUTO) 14.7 K/uL (1.8-7.7); NEUTROPHILS % (AUTO) 90.8 % (42.2-75.2); PLATELET COUNT (AUTO) 483 K/uL (140-450); RED BLOOD CELL COUNT(AUTO) 4.37 MIL/uL (4.20-6.10); RED CELL DISTRIBUTION WIDTH 13.3 % (11.6-13.7); WHITE BLOOD COUNT (AUTO) 16.2 K/uL (4.8-10.8)
--- NOTE | 2021-07-01 07:30 | NUR ---
PT RECEIVED FROM CERTIFIED HISTOLOGIC TECHNICIAN RN. PT RESTING IN BED. MOM CALLED REGARDING CARE. WILL CALL BACK WHEN REPORT IS FINISHED.
[2021-07-01 07:40] LABS: ANION GAP 8.6 (8-16); CARBON DIOXIDE 30.1 mmol/L (21-32); CREATININE 0.8 mg/dL (0.6-1.3); MAGNESIUM 2.1 mg/dL (1.8-2.4); POTASSIUM 3.7 mmol/L (3.5-5.1); TOTAL BILIRUBIN 0.5 mg/dL (0.0-1.0)
--- NOTE | 2021-07-01 08:00 | NUR ---
PT ROUNDED ON 88% ON HIGH FLOW 40% 100% FIO2 . PT DENIES PAIN AT THIS TIME. ALL SAFETY MEASURES ARE IN PLACE.
[2021-07-01] MEDS: DEXAMETHASONE 4 MG/ML VIAL IVP SCH (09:14)
[2021-07-01] MEDS: DOCUSATE SODIUM 100 MG GELCAP PO SCH (09:14)
--- NOTE | 2021-07-01 09:15 | NUR ---
MEDICATIONS GIVEN PER MD ORDER. PT EDUCATED VERBALIZED UNDERSTANDING . PT TRAY SET UP FOR FEEDING. PT SAT DROPPED DURING EATING TO 76% RT CALLED
[2021-07-01] MEDS: APIXABAN 2.5 MG TAB PO SCH (09:17)
--- NOTE | 2021-07-01 09:45 | NUR ---
PT SATURATION DROPPED TO 64% FOR 1 MIN ON HIGH MELVI 100% FIO2 AND NON REBREATHER MASK 10L RT AT BEDSIDE. RAPID RESPONSE CALLED.
--- NOTE | 2021-07-01 09:48 | NUR ---
PT PLACED ON BIPAP, FIO2 100 10/20. PT AT 73%
--- NOTE | 2021-07-01 10:30 | NUR ---
PT TRANSFERRED TO ICU FOR CONTINUITY OF CARE. PT AT 88% SATURATION,RR 50, 116/76
[2021-07-01] MEDS: DEXT 5% /NACL 0.9% 1,000 ML IV SCH ×2 (10:35→23:20)
[2021-07-01] MEDS ORDERED: NACL 0.9% 1,000 ML IV SCH (10:35)
[2021-07-01] MEDS ORDERED: SUCCINYLCHOLINE CHLORIDE 200 MG/10 ML VIAL IVP ONE (10:35)
[2021-07-01] MEDS ORDERED: ETOMIDATE 20 MG/10 ML VIAL IVP ONE (10:35)
[2021-07-01] MEDS ORDERED: LORazepam 2 MG/ML VIAL IVP PRN (10:45)
--- NOTE | 2021-07-01 10:45 | NUR ---
ASSISTED DR SALDAÑA WITH INTUBATION AND PLACED PT ON VENT ON AC 14 450 PEEP10 100%. WILL CONTINUE TO MONITOR.
--- NOTE | 2021-07-01 10:55 | NUR ---
1054 - ETOMIDATE 15MG GIVEN FOLLOWED BY SUCCINYLCHOLINE 40MG IVP ORDERED 1055 - PT INTUBATED, ETT 7.5CM 25 AT THE LIP
[2021-07-01] MEDS: PROPOFOL 1000 MG/100 ML PREMIX 100 ML IV PRN ×2 (11:00→12:05)
[2021-07-01] MEDS: REMDESIVIR. 100 MG in NACL 0.9% 100 ML IV SCH (11:00)
--- NOTE | 2021-07-01 11:30 | NUR ---
PROPOFOL STARTED FOR SEDATION TO KEEP RASS-3
[2021-07-01] MEDS: MIDAZOLAM MDV 100 MG in NACL 0.9% 80 ML IV PRN (12:00)
--- NOTE | 2021-07-01 12:00 | NUR ---
VERSED STARTED FOR SEDATION TO KEEP RASS-3
--- NOTE | 2021-07-01 13:30 | NUR ---
FENTANYL STARTED FOR SEDATION TO KEEP RASS-3
[2021-07-01] MEDS: fentaNYL citrate 1 MG in NACL 0.9% 80 ML IV PRN (13:31)
--- NOTE | 2021-07-01 15:36 | NUR ---
RASS -3, FLACC 0, NO RESPIRATORY DISTRESS. ETT TO VENT ACVC FIO2 100%, TV 450, R 16, PEEP 10
--- NOTE | 2021-07-01 16:44 | NUR ---
07/01/21 RD FOLLOW UP COMPLETED PLEASE REFER TO NUTRITION ASSESSMENT UNDER CARE ACTIVITY FOR ESTIMATED NUTRITIONAL NEEDS. 1. RECOMMEND VITAL AF 1.2 @ 60 ML/HR. START AT 10 ML/HR ADVANCE BY 10 ML/HR Q4H -THIS WILL PROVIDE 1728 KCAL, 108 GM OF PROTEIN, MEETING 100% OF ESTIMATED KCAL AND PROTEIN NEEDS 2. RECOMMEND FREE WATER FLUSH OF 100 ML Q4H 3. RECOMMEND VITAMIN C, VITAMIN D, AND MULTIVITAMIN 4. RD TO FOLLOW-UP 2-3 DAYS, HIGH RISK ALLYSSA RODGERS RD
--- NOTE | 2021-07-01 18:31 | NUR ---
NO APPARENT DISTRESS, RASS -3 FLACC 0
--- NOTE | 2021-07-01 18:45 | NUR ---
PT'S SISTERS CALLED FOR CONDITION UPDATE CAMACHO EVANGELINA , ELISA EVANGELINA
[2021-07-01] MEDS: FAMOTIDINE 20 MG/2 ML VIAL IV SCH (20:50)
[2021-07-01] MEDS: ENOXAPARIN 60 MG/0.6 ML SYR SUBQ SCH (20:54)
[2021-07-01] MEDS ORDERED: LOVENOX 1MG/KG Q12H SUBQ SCH (21:00)
[2021-07-01] MEDS: AZITHROMYCIN 500 MG in DEXTROSE 5% 250 ML IV SCH (21:05)
[2021-07-02] VITALS (26 sets, daily range): BP systolic 113–130; BP diastolic 56–88
[2021-07-02] MEDS: MIDAZOLAM MDV 100 MG in NACL 0.9% 80 ML IV PRN ×2 (00:31→22:16)
[2021-07-02] MEDS: DEXT 5% /NACL 0.9% 1,000 ML IV SCH (03:10)
[2021-07-02] MEDS: PROPOFOL 1000 MG/100 ML PREMIX 100 ML IV PRN ×2 (03:13→17:21)
--- NOTE | 2021-07-02 05:41 | NUR ---
PATIENT SLEEPING AT THIS TIME VITALS SIGNS IN NORMAL LIMITS SR 71 ON MONITOR //DiCaprio RN
--- NOTE | 2021-07-02 05:43 | NUR ---
PATIENT BATH WAS PERFORMED ALONG WITH ORAL AND CASI CARE LINE WAS CHANGED ALSO LACKEY CARE WAS PERFORMED //Dale APODACA
[2021-07-02 05:49] LABS: HEMATOCRIT 37.3 % (36-52); HEMOGLOBIN 12.7 g/dL (12.0-18.0); LYMPHOCYTES # (AUTO) 0.5 K/uL (2.0-11.5); LYMPHOCYTES % (AUTO) 3.2 % (20.5-51.1); MEAN CORPUSCULAR HEMOGLOBIN 32 pg (27-31); MEAN CORPUSCULAR HGB CONC 34 g/dL (33-37); MEAN CORPUSCULAR VOLUME 93.1 fL (80-94); MONOCYTES # (AUTO) 0.8 K/uL (0.8-1.0); MONOCYTES % (AUTO) 5.4 % (1.7-9.3); NEUTROPHILS # (AUTO) 13.8 K/uL (1.8-7.7); NEUTROPHILS % (AUTO) 91.4 % (42.2-75.2); PLATELET COUNT (AUTO) 428 K/uL (140-450); RED CELL DISTRIBUTION WIDTH 13.8 % (11.6-13.7); WHITE BLOOD COUNT (AUTO) 15.1 K/uL (4.8-10.8)
[2021-07-02 06:17] LABS: ALBUMIN 1.7 g/dL (3.4-5.0); ANION GAP 6.6 (8-16); CARBON DIOXIDE 29.6 mmol/L (21-32); CREATININE 0.7 mg/dL (0.6-1.3); MAGNESIUM 2.1 mg/dL (1.8-2.4); POTASSIUM 4.2 mmol/L (3.5-5.1); TOTAL BILIRUBIN 0.3 mg/dL (0.0-1.0)
--- NOTE | 2021-07-02 07:30 | NUR ---
RECEIVED REPORT FROM LARRY CAR OPERATOR NURSE. PT IN BED WITH HOB ELEVATED. TO KEEP RASS -3, DRY WEIGHT 59KG. FLACC 0, ETT TO VENT AC/VC FIO2 95%, TV 450, R 14, PEEP 10. WITH PERIPHERAL V RUNNING PROPOFOL AT 30MCG/KG/MIN, FENTANYL AT 1 MCG/KG/MIN AND VERSED AT 5MCG. OGT IN PLACE. LACKEY CATHETER INTACT. SKIN INTACT. SAFETY AND ISOLATION PRECAUTIONS IN PLACE. WILL CONTINUE TO MONITOR
--- NOTE | 2021-07-02 07:39 | NUR ---
RECEIVED INTUBATED PT WITH A 7.5 ETT SECURED @24 TEETH/GUM ON VENT. SETTINGS AC 14, VT450, PEEP 10 AND FIO2 TITRATED TO 95%. PT SEDATED AT THIS TIME, NOT IN ANY DISTRESS. VENT ALARMS ON AND FUNCTIONING. VENT IS PLUGGED INTO A RED OUTLET. ETT SECURE WITH ANCHOR FAST DEVICE. WILL CONTINUE TO MONITOR.
[2021-07-02] MEDS: DOCUSATE SODIUM 100 MG GELCAP PO SCH (09:00)
--- NOTE | 2021-07-02 09:30 | NUR ---
DUE MEDS GIVEN
[2021-07-02] MEDS: FAMOTIDINE 20 MG/2 ML VIAL IV SCH ×2 (09:37→21:23)
[2021-07-02] MEDS: ENOXAPARIN 60 MG/0.6 ML SYR SUBQ SCH ×2 (09:38→21:35)
[2021-07-02] MEDS: DEXAMETHASONE 4 MG/ML VIAL IVP SCH (09:38)
--- NOTE | 2021-07-02 10:00 | NUR ---
ORAL CARE AND LACKEY CARE DONE. TURNED AND REPOSITIONED PT
--- NOTE | 2021-07-02 10:30 | NUR ---
SEEN BY DR RIZO. ORDERED PICC LINE, CONSENT OBTAINED FROM PT'S SISTER CAMACHO HUTCHINSON
--- NOTE | 2021-07-02 12:13 | NUR ---
RASS -3, FLACC 0, NO RESPIRATORY DISTRESS. ETT TO VENT ACVC FIO2 90%, TV 450, R 16, PEEP 12
--- NOTE | 2021-07-02 13:45 | NUR ---
PICC LINE PLACEMENT CONFIRMED BY CXR
--- NOTE | 2021-07-02 16:00 | NUR ---
CASI CARE DONE. TURNED AND REPOSITIONED PT
[2021-07-02] MEDS: fentaNYL citrate 1 MG in NACL 0.9% 80 ML IV PRN ×2 (17:21→22:19)
--- NOTE | 2021-07-02 17:38 | NUR ---
PT ON 80% FIO2. ETT IS SECURE WITH A PATENT AIRWAY. VENT ALARMS ON AND FUNCTIONING. PT NOT IN ANY DISTRESS.
--- NOTE | 2021-07-02 18:36 | NUR ---
PT RESTING IN BED, RASS-3, NO APPARENT RESPIRATORY DISTRESS, FLACC 0
[2021-07-02] MEDS: AZITHROMYCIN 500 MG in DEXTROSE 5% 250 ML IV SCH (21:17)
[2021-07-03] VITALS (26 sets, daily range): BP systolic 111–146; BP diastolic 60–92
[2021-07-03] MEDS: DEXT 5% /NACL 0.9% 1,000 ML IV SCH ×3 (00:06→16:50)
--- NOTE | 2021-07-03 06:49 | NUR ---
PATIENT SEDATE AT THIS TIME VITALS SIGNS IN NORMAL LIMITS SR 72 ON MONITOR CONECTED TO VENTILATOR AC R 14 T450 FIO2 80% PEEP 12 BA,bed bath was completed ORAL CARE WAS PERFORMED DONT SEEM IN PAIN AT THIS TIME COMFORTABLE AT BED REST //Dale RN
--- NOTE | 2021-07-03 07:25 | NUR ---
RECEIVED REPORT FROM METHANE G[employer]LE[employer] SYSTEM OPERATOR NURSE. PATIENT LYING DOWN IN BED. ETT TO VENT, SEDATED RASS-3, LACKEY CATH IN PLACE. DRISS PICC LINE IN PLACE INFUSING IVF PER MD ORDERS. SKIN COLOR APPROPRIATE TO ETHNICITY, WARM TO TOUCH. VENT ACVC FIO2:80, VT:450, RATE:14, PEEP:12. OGT IN PLACE, NPO AT THIS TIME. REVIEWED PLAN OF CARE WITH PATIENT. UNABLE TO COMPREHEND. SAFETY MEASURES IN PLACE, CALL LIGHT WITHIN REACH. WILL CONTINUE TO MONITOR.
--- NOTE | 2021-07-03 08:05 | NUR ---
RECEIVED INTUBATED PT WITH A 7.5 ETT SECURED @24 TEETH/GUM ON VENT. SETTINGS AC 14,VT 450, PEEP 12 AND FIO2 TITRATED TO 70%. PT SUCTIONED OBTAINED SCANT AMOUNT OF THIN CLEAR SECRETIONS,AIRWAY IS PATENT AND SECURE. VENT IS PLUGGED INTO A RED OUTLET WITH ALARMS ON AND FUNCTIONING. PT HAS ACTIVE GAG REFLEX WHEN SUCTIONED. WILL CONTINUE TO MONITOR.
[2021-07-03] MEDS: DEXAMETHASONE 4 MG/ML VIAL IVP SCH (08:32)
[2021-07-03] MEDS: DOCUSATE 100 MG/10 ML UDC GT SCH (08:32)
[2021-07-03] MEDS: ENOXAPARIN 60 MG/0.6 ML SYR SUBQ SCH ×2 (08:32→21:36)
[2021-07-03] MEDS: FAMOTIDINE 20 MG/2 ML VIAL IV SCH ×2 (08:32→21:36)
--- NOTE | 2021-07-03 08:57 | NUR ---
SCHEDULED MEDICATIONS DUE GIVEN. ORAL CARE PROVIDED. WILL CONTINUE TO MONITOR.
--- NOTE | 2021-07-03 11:50 | NUR ---
ORAL CARE PERFORMED AND CHANGED PATIENT POSITION. WILL CONTINUE TO MONITOR.
--- NOTE | 2021-07-03 14:50 | NUR ---
REPOSITIONED PATIENT. CONDITION UNCHANGED. SUCTIONED PATIENT. WILL CONTINUE TO MONITOR.
--- NOTE | 2021-07-03 17:30 | NUR ---
CLEANED AND REPOSITIONED PATIENT. CONDITION UNCHANGED. WILL CONTINUE TO MONITOR.
[2021-07-03] MEDS: PROPOFOL 1000 MG/100 ML PREMIX 100 ML IV PRN (18:38)
--- NOTE | 2021-07-03 18:39 | NUR ---
CHANGED PROPOFOL BOTTLE. WILL CONTINUE TO MONITOR.
--- NOTE | 2021-07-03 19:25 | NUR ---
GAVE REPORT TO KEY MAKER NURSE FOR CONTINUITY OF CARE. PATIENT CONTINUES TO BE IN CRITICAL CONDITION.
[2021-07-03] MEDS: AZITHROMYCIN 500 MG in DEXTROSE 5% 250 ML IV SCH (21:21)
--- NOTE | 2021-07-03 22:30 | NUR ---
PATIENT SEDATED VITALS SIGNS IN NORMAL LIMITS RR 78 ON MONITOR STABLE VENT R 14 T450 FIO2 55 WE TALK TO THE FAMILY //Dale APODACA
[2021-07-04] VITALS (25 sets, daily range): BP systolic 64–155; BP diastolic 56–92
[2021-07-04] MEDS: PROPOFOL 1000 MG/100 ML PREMIX 100 ML IV PRN ×2 (04:48→15:55)
[2021-07-04] MEDS: DEXT 5% /NACL 0.9% 1,000 ML IV SCH (05:17)
--- NOTE | 2021-07-04 06:27 | NUR ---
PATIENT SEDATED VITALS SIGNS IN NORMAL LIMITS SR 64 ON MONITOR BATH WAS DONE ALONG WITH ORAL CARE DOESNT SEEM IN PAIN AND IS STABLE AT THIS TIME //Dale RN
--- NOTE | 2021-07-04 06:27 | NUR ---
PATIENT SEDATED DIXON
--- NOTE | 2021-07-04 07:30 | NUR ---
REPORT RECEIVED FROM PM SHIFT RN FOR CONTINUITY OF CARE. SEDATED, RASS -3. ETT TO VENT. AC/VC MODE FIO2 55%, TV 450, RATE 14, PEEP 12. IV SITE LT FOREARM 18 G AND RT WRIST 22G BOTH INTACT, PATENT, GOOD BLOOD RETURN. RT UPPER PICC LINE INFUSING VERSED 2MG/HR, FENTANYL 0.5MCG/KG/HR, PROPOFOL 40 MCG/KG/MIN, D5NS 80 ML/HR. OGT TO FEEDING. 0 RESIDUALS NOTED. LACKEY CATHETER IN PLACE. SR ON MONITOR. PT ON BILAT SOFT WRIST RESTRAINTS. NO SKIN BREAKDOWN NOTED. SKIN INTACT, WARM AND DRY. HOB 30 DEGREES. BED LOCKED IN LOWEST POSITION. SAFETY PRECAUTIONS IN PLACE. WILL CONTINUE TO MONITOR.
--- NOTE | 2021-07-04 08:00 | NUR ---
AM MEDICATIONS GIVEN. ORAL CARE PROVIDED. PT REPOSITIONED. SAFETY PRECAUTIONS IN PLACE. WILL CONTINUE TO MONITOR.
[2021-07-04] MEDS: FAMOTIDINE 20 MG/2 ML VIAL IV SCH ×2 (08:09→20:56)
[2021-07-04] MEDS: DOCUSATE 100 MG/10 ML UDC GT SCH (08:09)
[2021-07-04] MEDS: DEXAMETHASONE 4 MG/ML VIAL IVP SCH (08:10)
[2021-07-04] MEDS: ENOXAPARIN 60 MG/0.6 ML SYR SUBQ SCH ×2 (08:11→20:58)
--- NOTE | 2021-07-04 10:00 | NUR ---
ORAL CARE PROVIDED, PT REPOSITIONED. WILL CONTINUE TO MONITOR.
--- NOTE | 2021-07-04 10:28 | NUR ---
PEEP TITRATED TO 8cmH2O PER . WILL CONTINUE TO MONITOR.
[2021-07-04] MEDS ORDERED: oxyCODONE 10 MG TABER PO SCH (12:00)
[2021-07-04] MEDS ORDERED: CRUSHER, PILL MC ONE (12:09)
--- NOTE | 2021-07-04 12:55 | NUR ---
PT HAS EYES CLOSED, RESPIRATIONS EVEN AND UNLABORED. CHEST RISE IS SYMMETRICAL. SAFETY PRECAUTIONS IN PLACE. HOB 30 DEGREES. BED LOCKED IN LOWEST POSITION. WILL CONTINUE TO MONITOR.
--- NOTE | 2021-07-04 13:58 | NUR ---
RECEIVED TORB FROM DR. RBAY TO DC IV DEXTROSE AND ADD VITAMIN C, VITAMIN D AND A MULTIVITAMIN ONCE DAILY.
[2021-07-04] MEDS: NACL 0.9% 1,000 ML IV SCH (14:47)
--- NOTE | 2021-07-04 15:36 | NUR ---
07/04/21 RD FOLLOW UP COMPLETED PLEASE REFER TO NUTRITION ASSESSMENT UNDER CARE ACTIVITY FOR ESTIMATED NUTRITIONAL NEEDS. 1. CONTINUE VITAL AF 1.2 @ 60 ML/HR. START AT 10 ML/HR ADVANCE BY 10 ML/HR Q4H -THIS WILL PROVIDE 1728 KCAL, 108 GM OF PROTEIN, MEETING 100% OF ESTIMATED KCAL AND PROTEIN NEEDS 2. CONTINUE FREE WATER FLUSH OF 100 ML Q4H 3. RECOMMENDED VITAMIN C, VITAMIN D, AND MULTIVITAMIN AND D/C DEXTROSE IV 4. RD TO FOLLOW-UP 2-3 DAYS, HIGH RISK ALLYSSA RODGERS RD
--- NOTE | 2021-07-04 17:30 | NUR ---
PT CLEANED, REPOSITIONED. WILL CONTINUE TO MONITOR.
[2021-07-04] MEDS: oxyCODONE 5 MG TAB PO SCH (18:16)
--- NOTE | 2021-07-04 19:10 | NUR ---
REPORT GIVEN TO PM SHIFT RN FOR CONTINUITY OF CARE
--- NOTE | 2021-07-04 19:15 | NUR ---
RECEIVED PATIENT ON BED WITH HOB TO 30 DEGREE; SEDATED WITH FENTANYL 1 MCG/KG/HR, VERSED AT 2 MG/HR AND ON PROPOFOL DRIPAT 25 MCG/KG/MIN VIA PICC LINE TO RIGHT UPPER ARM; INTACT. CARDIACCOPE SHOWS ON SINUS RHYTHM HR 60/MIN NO ARRHYTHMIAS SEEN. IVF IN PROGRES NORMAL SALINE AT 80ML/HR. ABDOMEN IS SOFT, HYPOACTIVE BOWEL SOUNDS. ON CONTINOUS TUBE FEEDING VITAL AF AT 60 ML/HR VIA OGT; TOLERATE AND NO RESIDUALS. WITH LACKEY CATH IN SITU TO GRAVITY DRAINAGE BAG; INTACT.
--- NOTE | 2021-07-04 20:30 | NUR ---
TURNED AND REPOSITIONED PATIENT; ORALCARE DONE WITH VAP KIT.
[2021-07-04] MEDS: ASCORBIC ACID 500 MG/5 ML ORASYR GT SCH (20:56)
[2021-07-04] MEDS: QUEtiapine FUMARATE 100 MG TAB PO SCH (20:57)
[2021-07-04] MEDS: AZITHROMYCIN 500 MG in DEXTROSE 5% 250 ML IV SCH (20:57)
[2021-07-04] MEDS: fentaNYL citrate 1 MG in NACL 0.9% 80 ML IV PRN (22:51)
[2021-07-05] VITALS (28 sets, daily range): BP systolic 101–155; BP diastolic 49–88
[2021-07-05] MEDS: oxyCODONE 5 MG TAB PO SCH ×4 (00:39→17:59)
[2021-07-05] MEDS: PROPOFOL 1000 MG/100 ML PREMIX 100 ML IV PRN (04:22)
--- NOTE | 2021-07-05 04:30 | NUR ---
MORNING BED BATH DONE; TURNED AND REPOSITIONED PATIENT; KEPT CLEAN DRY AND COMFORTABLE.
[2021-07-05] MEDS: NACL 0.9% 1,000 ML IV SCH ×3 (06:06→19:43)
[2021-07-05 06:24] LABS: BASOPHILS % (AUTO) 0.1 % (0.0-2.0); EOSINOPHILS % (AUTO) 0.1 % (0.0-4.0); HEMATOCRIT 34.8 % (36-52); HEMOGLOBIN 11.9 g/dL (12.0-18.0); LYMPHOCYTES # (AUTO) 0.5 K/uL (2.0-11.5); LYMPHOCYTES % (AUTO) 4.2 % (20.5-51.1); MEAN CORPUSCULAR HEMOGLOBIN 32 pg (27-31); MEAN CORPUSCULAR HGB CONC 34 g/dL (33-37); MEAN CORPUSCULAR VOLUME 94.6 fL (80-94); MONOCYTES # (AUTO) 0.7 K/uL (0.8-1.0); MONOCYTES % (AUTO) 5.5 % (1.7-9.3); NEUTROPHILS # (AUTO) 11.4 K/uL (1.8-7.7); NEUTROPHILS % (AUTO) 90.1 % (42.2-75.2); PLATELET COUNT (AUTO) 341 K/uL (140-450); RED BLOOD CELL COUNT(AUTO) 3.68 MIL/uL (4.20-6.10); RED CELL DISTRIBUTION WIDTH 14.1 % (11.6-13.7); WHITE BLOOD COUNT (AUTO) 12.6 K/uL (4.8-10.8)
--- NOTE | 2021-07-05 07:20 | NUR ---
ENDORSED TO AM SHIFT RN FOR CONTINUITY OF CARE.
--- NOTE | 2021-07-05 07:21 | NUR ---
REPORT RECEIVED FROM PM SHIFT RN FOR CONTINUITY OF CARE. SEDATED, RASS -3. ETT TO VENT. AC/VC MODE FIO2 32%, TV 450, RATE 14, PEEP 8. RT UPPER PICC LINE INFUSING VERSED 1MG/HR, FENTANYL 0.5MCG/KG/HR, PROPOFOL 20MCG/KG/MIN, D5NS 80 ML/HR. OGT TO FEEDING. 0 RESIDUALS NOTED. LACKEY CATHETER IN PLACE. SR ON MONITOR. NO SKIN BREAKDOWN NOTED. SKIN INTACT, WARM AND DRY. HOB 30 DEGREES. BED LOCKED IN LOWEST POSITION. SAFETY PRECAUTIONS IN PLACE. WILL CONTINUE TO MONITOR.
[2021-07-05 07:26] LABS: ALBUMIN 1.3 g/dL (3.4-5.0); ANION GAP 6.8 (8-16); CARBON DIOXIDE 30.3 mmol/L (21-32); CREATININE 0.6 mg/dL (0.6-1.3); POTASSIUM 4.1 mmol/L (3.5-5.1); TOTAL BILIRUBIN 0.2 mg/dL (0.0-1.0)
[2021-07-05] MEDS: ENOXAPARIN 60 MG/0.6 ML SYR SUBQ SCH ×2 (09:00→21:00)
[2021-07-05] MEDS: DOCUSATE 100 MG/10 ML UDC GT SCH (09:00)
[2021-07-05] MEDS: ASCORBIC ACID 500 MG/5 ML ORASYR GT SCH ×2 (09:00→21:00)
[2021-07-05] MEDS: MULTIVITAMIN/MINERALS 15 ML UDBTL GT SCH (09:00)
[2021-07-05] MEDS: QUEtiapine FUMARATE 100 MG TAB PO SCH ×2 (09:00→21:00)
--- NOTE | 2021-07-05 09:00 | NUR ---
DUE MEDICATIONS ADMINISTERED, PT TOLERATED WELL, NO DISTRESS NOTED,WILL CONTINUE TO MONITOR.
[2021-07-05] MEDS: FAMOTIDINE 20 MG/2 ML VIAL IV SCH ×2 (09:01→21:00)
[2021-07-05] MEDS: VITAMIN D 400 IU TAB PO SCH (09:01)
[2021-07-05] MEDS: DEXAMETHASONE 4 MG/ML VIAL IVP SCH (09:02)
--- NOTE | 2021-07-05 11:50 | NUR ---
DUE MEDICATIONS ADMINISTERED PT TOLERATED WELL, WILL CONTINUE TO MONITOR.
--- NOTE | 2021-07-05 17:59 | NUR ---
DUE MEDICATIONS ADMINISTERED, PT TOLERATED WELL, NO DISTRESS NOTED, WILL CONTINUE TO MONITOR.
--- NOTE | 2021-07-05 19:20 | NUR ---
RECEIVED PATIENT ON BED ORALLY INTUBATED AND VENTILATED AT 32% FIO2, SO2 95%. SEDATED WITH FENTANYL DRIP, VERSED AND PROPOFOL DRIP VIA PICC LINE TO RIGHT UPPER ARM; INTACT. ABDOMEN IS SOFT , ACTIVE BOWEL SOUNDS. ON CONTINOUS TUBE FEEDING VITAL AF AT 60 ML/HR VIA OGT; TOLERATED, NO RESIDUAL. WITH LACKEY CATH IN PLACE TO GRAVITY DRAINAGE BAG; INTACT.
--- NOTE | 2021-07-05 20:15 | NUR ---
TURNED AND REPOSITIONED, ORAL CARE DONE WITH VAP KIT.
[2021-07-05] MEDS: AZITHROMYCIN 500 MG in DEXTROSE 5% 250 ML IV SCH (21:00)
[2021-07-05] MEDS: MIDAZOLAM MDV 100 MG in NACL 0.9% 80 ML IV PRN (23:35)
[2021-07-06] VITALS (26 sets, daily range): BP systolic 91–182; BP diastolic 58–123
[2021-07-06] MEDS: oxyCODONE 5 MG TAB PO SCH ×5 (00:57→23:57)
[2021-07-06] MEDS: PROPOFOL 1000 MG/100 ML PREMIX 100 ML IV PRN (02:07)
--- NOTE | 2021-07-06 04:00 | NUR ---
MORNING BED BATH DONE; KEPT CLEAN DRY AND COMFORTABLE.
[2021-07-06 06:24] LABS: BASOPHILS % (AUTO) 0.1 % (0.0-2.0); EOSINOPHILS % (AUTO) 0.3 % (0.0-4.0); HEMATOCRIT 35.1 % (36-52); HEMOGLOBIN 11.7 g/dL (12.0-18.0); LYMPHOCYTES # (AUTO) 0.8 K/uL (2.0-11.5); LYMPHOCYTES % (AUTO) 6.8 % (20.5-51.1); MEAN CORPUSCULAR HEMOGLOBIN 32 pg (27-31); MEAN CORPUSCULAR HGB CONC 33 g/dL (33-37); MEAN CORPUSCULAR VOLUME 95.1 fL (80-94); MONOCYTES # (AUTO) 0.7 K/uL (0.8-1.0); NEUTROPHILS # (AUTO) 10.2 K/uL (1.8-7.7); NEUTROPHILS % (AUTO) 86.8 % (42.2-75.2); PLATELET COUNT (AUTO) 355 K/uL (140-450); RED CELL DISTRIBUTION WIDTH 13.9 % (11.6-13.7); WHITE BLOOD COUNT (AUTO) 11.7 K/uL (4.8-10.8)
[2021-07-06 06:51] LABS: ALBUMIN 1.2 g/dL (3.4-5.0); ANION GAP 5.8 (8-16); CARBON DIOXIDE 30.9 mmol/L (21-32); CREATININE 0.6 mg/dL (0.6-1.3); POTASSIUM 3.7 mmol/L (3.5-5.1); TOTAL BILIRUBIN 0.2 mg/dL (0.0-1.0)
[2021-07-06] MEDS: fentaNYL citrate 1 MG in NACL 0.9% 80 ML IV PRN (06:54)
--- NOTE | 2021-07-06 07:30 | NUR ---
RECIVED REPORT FROM ROSALIO APODACA PT IS ETT TO VENT , IN BED HOB UP 30 DEGREE HAS PICC LINE ON RT UPPER ARM , NG TUBE FEEDING IN PROGRESS, LACKEY CATH DRAIN DARK COLOR URINE,.
[2021-07-06] MEDS: QUEtiapine FUMARATE 100 MG TAB PO SCH ×2 (09:00→21:00)
[2021-07-06] MEDS: FAMOTIDINE 20 MG/2 ML VIAL IV SCH ×2 (09:00→20:32)
[2021-07-06] MEDS: MULTIVITAMIN/MINERALS 15 ML UDBTL GT SCH (09:00)
[2021-07-06] MEDS: DEXAMETHASONE 4 MG/ML VIAL IVP SCH (09:00)
[2021-07-06] MEDS: ASCORBIC ACID 500 MG/5 ML ORASYR GT SCH ×2 (09:00→21:00)
[2021-07-06] MEDS: DOCUSATE 100 MG/10 ML UDC GT SCH (09:00)
[2021-07-06] MEDS: ENOXAPARIN 60 MG/0.6 ML SYR SUBQ SCH ×2 (09:00→20:33)
[2021-07-06] MEDS: VITAMIN D 400 IU TAB PO SCH (09:00)
[2021-07-06] MEDS ORDERED: DEXMEDETOMIDINE HCL 400 MCG in NACL 0.9% 96 ML IV PRN (09:15)
[2021-07-06] MEDS ORDERED: POLYETHYLENE GLYCOL 17 GM/PKT PO PRN (09:25)
--- NOTE | 2021-07-06 10:00 | NUR ---
SEEN BY DAVID SWIFT AT BED SIDE, ORDER TO PUT EVAN ON SEDATION VACATION D/C ALL SEDATION MED .
--- NOTE | 2021-07-06 10:10 | NUR ---
PT AWAKE SLOWLY RESPONSE TO VERBAL COMMAND AND TRY TO PULL HIMSELF OUT FROM RESTRAIN. BUT BACK TO SLEEP
--- NOTE | 2021-07-06 10:24 | NUR ---
ABG WAS DRAW REPORT RESULT TO VERA HE ORDER TO EXTUBATED THE PATIENT
--- NOTE | 2021-07-06 11:15 | NUR ---
PT WAS EXTUBATED , HE BECOME RESTLESS AND AGITATED, MEDICATION GAVE ORDERED.
--- NOTE | 2021-07-06 12:00 | NUR ---
PT RESTING QUIETLY V/S WITH IN NORMAL LIMIT.
--- NOTE | 2021-07-06 15:56 | NUR ---
07/06/21 RD FOLLOW UP COMPLETED PLEASE REFER TO NUTRITION ASSESSMENT UNDER CARE ACTIVITY FOR ESTIMATED NUTRITIONAL NEEDS. 1. RECOMMEND SWALLOW EVALUATION FOR PO INTAKE 2. RECOMMEND ENSURE TID 3. RD TO FOLLOW-UP 2-3 DAYS, HIGH RISK ALLYSSA RODGERS, RD
--- NOTE | 2021-07-06 16:00 | NUR ---
RESTING COMFORTABLY V/S STABLE NO SOB NOTE.
[2021-07-06] MEDS: NACL 0.9% 1,000 ML IV SCH (16:35)
--- NOTE | 2021-07-06 19:00 | NUR ---
DO DISTRESS NOTED
--- NOTE | 2021-07-06 19:15 | NUR ---
RECEIVED PATIENT FROM AM SHIFT NURSE FOR CONTINUITY OF CARE. AWAKE, UNABLE TO MAKE NEEDS KNOWN. RESPIRATIONS SLIGHTLY TACHYPNEIC, CONTINUES ON HFNC 40L 75%, O2SAT 97%. S1/S2 AUSCULTATED. FLACC 0. SKIN WARM, DRY. BSWR IN PLACE, NO INJURY TO PATIENT. ADEQUATE CIRCULATION TO BOTH EXTREMITIES. RIGHT UPPER ARM PICC NOTED, INFUSING FLUIDS WELL. ABDOMEN SOFT, NONTENDER, NONDISTENDED. BOWEL SOUNDS ACTIVE x4 QUADRANTS. LACKEY CATHETER PATENT WITH YELLOW URINE DRAINING TO GRAVITY. HOB UP 30 DEGREES. PLAN OF CARE DISCUSSED. SAFETY PRECAUTIONS IN PLACE. ISOLATION PRECAUTIONS OBSERVED BY ALL STAFF.
--- NOTE | 2021-07-06 19:15 | NUR ---
REPORT GIVE TO ZORAIDA APODACA.
[2021-07-06] MEDS: AZITHROMYCIN 500 MG in DEXTROSE 5% 250 ML IV SCH (21:00)
--- NOTE | 2021-07-06 21:45 | NUR ---
ATTEMPTED TO REINSERT NGT AND WAS UNSUCCESSFUL. ALL OTHER DUE MEDS GIVEN. PATIENT IS RESTING COMFORTABLY IN BED AT THIS TIME. NO S/S DISTRESS NOTED.
[2021-07-06] MEDS: MORPHINE SULFATE 4 MG/ML SYR IVP PRN (23:30)
--- NOTE | 2021-07-06 23:58 | NUR ---
PATIENT TURNED AND REPOSITIONED.
[2021-07-07] VITALS (24 sets, daily range): BP systolic 97–155; BP diastolic 69–107
--- NOTE | 2021-07-07 01:40 | NUR ---
MADE ROUNDS. PATIENT IS ASLEEP. NO S/S RESPIRATORY DISTRESS. PATIENT IS CLEAN/DRY. FREQUENT ROUNDS BY ALL STAFF. ISOLATION PRECAUTIONS OBSERVED BY ALL STAFF. SAFETY PRECAUTIONS IN PLACE.
--- NOTE | 2021-07-07 03:46 | NUR ---
PATIENT IS ASLEEP. NO S/S RESPIRATORY DISTRESS. FLACC 0. PATIENT IS CLEAN/DRY. ISOLATION PRECAUTIONS OBSERVED. SAFETY PRECAUTIONS IN PLACE.
[2021-07-07] MEDS: NACL 0.9% 1,000 ML IV SCH ×2 (04:58→17:50)
[2021-07-07] MEDS: oxyCODONE 5 MG TAB PO SCH ×2 (05:04→11:32)
[2021-07-07] MEDS: MORPHINE SULFATE 4 MG/ML SYR IVP PRN ×3 (05:06→22:35)
--- NOTE | 2021-07-07 05:30 | NUR ---
ALL NEEDS ANTICIPATED AND MET. NO S/S RESPIRATORY DISTRESS. FLACC 0. PATIENT CLEAN/DRY.
--- NOTE | 2021-07-07 07:14 | NUR ---
ENDORSED PATIENT TO AM SHIFT FOR CONTINUITY OF CARE.
--- NOTE | 2021-07-07 07:19 | NUR ---
RECEIVED PATIENT FROM PM SHIFT NURSE FOR CONTINUITY OF CARE. AWAKE, UNABLE TO MAKE NEEDS KNOWN. RESPIRATIONS SLIGHTLY TACHYPNEIC, CONTINUES ON HFNC 40L 75%, O2SAT 97%. S1/S2 AUSCULTATED. FLACC 0. SKIN WARM, DRY. BSWR IN PLACE, NO INJURY TO PATIENT. ADEQUATE CIRCULATION TO BOTH EXTREMITIES. RIGHT UPPER ARM PICC NOTED, INFUSING IV FLUIDS WELL. ABDOMEN SOFT, NONTENDER, NONDISTENDED. BOWEL SOUNDS ACTIVE x4 QUADRANTS. LACKEY CATHETER PATENT WITH YELLOW URINE DRAINING TO GRAVITY. HOB UP 30 DEGREES. SAFETY MEASURES IN PLACE. WILL CONTINUE TO MONITOR
[2021-07-07 07:20] LABS: BASOPHILS % (AUTO) 0.3 % (0.0-2.0); EOSINOPHILS % (AUTO) 0.2 % (0.0-4.0); HEMATOCRIT 39.4 % (36-52); HEMOGLOBIN 13.3 g/dL (12.0-18.0); LYMPHOCYTES # (AUTO) 1.3 K/uL (2.0-11.5); LYMPHOCYTES % (AUTO) 9.3 % (20.5-51.1); MEAN CORPUSCULAR HEMOGLOBIN 31 pg (27-31); MEAN CORPUSCULAR HGB CONC 34 g/dL (33-37); MONOCYTES # (AUTO) 0.8 K/uL (0.8-1.0); NEUTROPHILS # (AUTO) 11.5 K/uL (1.8-7.7); NEUTROPHILS % (AUTO) 84.2 % (42.2-75.2); PLATELET COUNT (AUTO) 346 K/uL (140-450); RED BLOOD CELL COUNT(AUTO) 4.23 MIL/uL (4.20-6.10); WHITE BLOOD COUNT (AUTO) 13.7 K/uL (4.8-10.8)
[2021-07-07 07:23] LABS: ALBUMIN 1.5 g/dL (3.4-5.0); ANION GAP 11.7 (8-16); CARBON DIOXIDE 28.6 mmol/L (21-32); CREATININE 0.6 mg/dL (0.6-1.3); POTASSIUM 3.3 mmol/L (3.5-5.1); TOTAL BILIRUBIN 0.5 mg/dL (0.0-1.0)
[2021-07-07] MEDS: ASCORBIC ACID 500 MG/5 ML ORASYR GT SCH ×2 (08:06→20:09)
[2021-07-07] MEDS: MULTIVITAMIN/MINERALS 15 ML UDBTL GT SCH (08:06)
[2021-07-07] MEDS: QUEtiapine FUMARATE 100 MG TAB PO SCH ×2 (08:07→20:10)
[2021-07-07] MEDS: VITAMIN D 400 IU TAB PO SCH (08:07)
[2021-07-07] MEDS: DOCUSATE 100 MG/10 ML UDC GT SCH (08:07)
[2021-07-07] MEDS: ENOXAPARIN 60 MG/0.6 ML SYR SUBQ SCH ×2 (08:12→20:10)
[2021-07-07] MEDS: FAMOTIDINE 20 MG/2 ML VIAL IV SCH ×2 (08:13→20:11)
[2021-07-07] MEDS: DEXAMETHASONE 4 MG/ML VIAL IVP SCH (08:16)
--- NOTE | 2021-07-07 09:00 | NUR ---
HELD PO MEDS D/T SW EVAL PENDING. PT HAS NO OGT OR NGT. ADMINISTERED SQ AND IVP MEDICATIONS. SAFETY MEASURES IN PLACE. WILL CONTINUE TO MONITOR
--- NOTE | 2021-07-07 09:45 | NUR ---
SON CALLED AND WANTED AN UPDATE. UPDATE GIVEN. SAFETY MEASURES IN PLACE. WILL CONTINUE TO MONITOR
--- NOTE | 2021-07-07 10:00 | NUR ---
DAUGHTER LIZETH CALLED AND WANTED AN UPDATE. UPDATE GIVEN. SAFETY MEASURES IN PLACE. WILL CONTINUE TO MONITOR
[2021-07-07] MEDS: KCL 20 MEQ/WATER INJ PREMIX 200 ML IV PRN (11:01)
--- NOTE | 2021-07-07 11:01 | NUR ---
PT ANXIOUS AND RESTLESS, PT THRASHING ABOUT. HEART RATE 130 AND BP 152/101. PRN ATIVAN ADMINISTERED PRESCRIBED PER MD ORDER. SAFETY MEASURES IN PLACE. WILL CONTINUE TO MONITOR
--- NOTE | 2021-07-07 12:30 | NUR ---
PT IN PAIN. VITAL SIGN CHANGES AND GRIMACING. PRN MORPHINE ADMINISTERED PRESCRIBED PER MD ORDER. PT TOLERATED WELL. SAFETY MEASURES IN PLACE. WILL CONTINUE TO MONITOR
--- NOTE | 2021-07-07 14:15 | NUR ---
REPOSITIONED PATIENT COMFORTABLY. PT TOLERATED WELL. SAFETY MEASURES IN PLACE. WILL CONTINUE TO MONITOR
[2021-07-07] MEDS ORDERED: HALOPERIDOL IM 5 MG/ML VIAL IM PRN (14:35)
--- NOTE | 2021-07-07 15:30 | NUR ---
SON CALLED AND WANTED ANOTHER UPDATE. UPDATE GIVEN. SAFETY MEASURES IN PLACE. WILL CONTINUE TO MONITOR
--- NOTE | 2021-07-07 16:15 | NUR ---
VAP CARE PERFORMED. REPOSITIONED PATIENT COMFORTABLY. PT TOLERATED WELL. SAFETY MEASURES IN PLACE. WILL CONTINUE TO MONITOR
--- NOTE | 2021-07-07 17:00 | NUR ---
NG TUBE IN L NARE INSERTED PER MD ORDER. PT TOLERATED FAIRLY. PENDING CXR FOR VERIFICATION. SAFETY MEASURES IN PLACE. WILL CONTINUE TO MONITOR
--- NOTE | 2021-07-07 18:45 | NUR ---
STARTED TUBE FEEDINGS AT PRESCRIBED PER MD ORDER. PT TOLERATED FAIRLY. SAFETY MEASURES IN PLACE. WILL CONTINUE TO MONITOR
--- NOTE | 2021-07-07 19:15 | NUR ---
REPORT RECEIVED FROM DAY SHIFT NURSE. PATIENT IS OFF SEDATION, STILL DROWSY AND CONFUSED. RESPIRATION EVEN UNLABORED ON HIGH FLOW NASAL CANNULA 35L @ 40%. SKIN IS WARM AND DRY. RIGHT UPPER ARM PICC LINE NOTED INFUSING NS @ 80ML/HR. BILATERAL SOFT WRIST RESTRAINT NOTED. PLAN OF CARE UPDATED. ALL SAFETY MEASURES IN PLACE. BED IS AT LOW POSITION. CALL LIGHT WITHIN REACH. WILL CONTINUE TO MONITOR.
--- NOTE | 2021-07-07 19:30 | NUR ---
ENDORSED TO NIGHTSHIFT NURSE FOR CONTINUITY OF CARE
--- NOTE | 2021-07-07 20:00 | NUR ---
INITIAL ASSESSMENT DONE. ALL SCHEDULED MEDS WERE GIVEN PER ORDER.
--- NOTE | 2021-07-07 21:40 | NUR ---
SPOKE WITH SON, UPDATED HER REGARDING PATIENT CONDITION AND PLAN OF CARE.
--- NOTE | 2021-07-07 22:00 | NUR ---
ORAL CARE PROVIDED
--- NOTE | 2021-07-07 22:35 | NUR ---
PATIENT GRIMACING, RESTLESS, AND HEART RATE INCREASE, PRN MORPHINE GIVEN PER ORDER. WILL CONTINUE TO MONITOR.
[2021-07-08] VITALS (11 sets, daily range): BP systolic 98–153; BP diastolic 60–102
--- NOTE | 2021-07-08 02:00 | NUR ---
PATIENT SLEEPING NO DISTRESS NOTED
--- NOTE | 2021-07-08 04:00 | NUR ---
AM CARE PROVIDED
[2021-07-08] MEDS: NACL 0.9% 1,000 ML IV SCH ×2 (06:16→18:56)
--- NOTE | 2021-07-08 07:30 | NUR ---
RECEIVED REPORT FROM CHALKER SOLES NURSE. PT IN BED WITH HOB ELEVATED. AWAKE, AOX1, RESPONSIVE TO NAME, CONFUSED. FLACC 0, ON HIGH FLOW O2 30L 40% FIO2, NO SOB. WITH DRISS PICC RUNNING NS AT 80CC/HR. NGT TO L NARES IN PLACE RUNNING TUBE FEEDING VITAL 30CC/HR FWF 100Q4. LACKEY CATHETER INTACT. SKIN INTACT. SAFETY AND ISOLATION PRECAUTIONS IN PLACE. WILL CONTINUE TO MONITOR
[2021-07-08] MEDS: MORPHINE SULFATE 4 MG/ML SYR IVP PRN (08:30)
--- NOTE | 2021-07-08 09:00 | NUR ---
SEEN AND EXAMINED BY DR RIZO AND DR MARAVILLA. Addendum: 07/08/21 at 1336 by Ahmet Marte RN ORDERED TO DOWNGRADE TO TELE
[2021-07-08] MEDS ORDERED: LORazepam 2 MG/ML VIAL IM/IVP SCH (09:20)
[2021-07-08] MEDS: DEXAMETHASONE 4 MG/ML VIAL IVP SCH (09:21)
[2021-07-08] MEDS: ENOXAPARIN 60 MG/0.6 ML SYR SUBQ SCH ×2 (09:21→20:48)
[2021-07-08] MEDS: FAMOTIDINE 20 MG/2 ML VIAL IV SCH ×2 (09:21→20:44)
[2021-07-08] MEDS: DOCUSATE 100 MG/10 ML UDC GT SCH (09:32)
[2021-07-08] MEDS: VITAMIN D 400 IU TAB PO SCH (09:32)
[2021-07-08] MEDS: MULTIVITAMIN/MINERALS 15 ML UDBTL GT SCH (09:32)
[2021-07-08] MEDS: ASCORBIC ACID 500 MG/5 ML ORASYR GT SCH ×2 (09:32→20:44)
[2021-07-08 10:05] LABS: BASOPHILS % (AUTO) 0.1 % (0.0-2.0); EOSINOPHILS % (AUTO) 0.2 % (0.0-4.0); HEMATOCRIT 42.1 % (36-52); HEMOGLOBIN 14.1 g/dL (12.0-18.0); LYMPHOCYTES # (AUTO) 0.9 K/uL (2.0-11.5); LYMPHOCYTES % (AUTO) 7.4 % (20.5-51.1); MEAN CORPUSCULAR HEMOGLOBIN 32 pg (27-31); MEAN CORPUSCULAR HGB CONC 34 g/dL (33-37); MEAN CORPUSCULAR VOLUME 94.8 fL (80-94); MONOCYTES # (AUTO) 0.7 K/uL (0.8-1.0); MONOCYTES % (AUTO) 6.1 % (1.7-9.3); NEUTROPHILS # (AUTO) 10.4 K/uL (1.8-7.7); NEUTROPHILS % (AUTO) 86.2 % (42.2-75.2); PLATELET COUNT (AUTO) 344 K/uL (140-450); RED BLOOD CELL COUNT(AUTO) 4.44 MIL/uL (4.20-6.10); RED CELL DISTRIBUTION WIDTH 13.4 % (11.6-13.7); WHITE BLOOD COUNT (AUTO) 12.1 K/uL (4.8-10.8)
[2021-07-08 10:21] LABS: ANION GAP 11.1 (8-16); CARBON DIOXIDE 29.7 mmol/L (21-32); CREATININE 0.7 mg/dL (0.6-1.3); POTASSIUM 3.8 mmol/L (3.5-5.1)
--- NOTE | 2021-07-08 12:00 | NUR ---
NGT INSERTED TO LEFT NARES. PENDING CXR CONFIRMATION
--- NOTE | 2021-07-08 13:00 | NUR ---
TRANSFERRED TO TELE ROOM 127B. REPORT GIVEN TO KATHY APODACA
[2021-07-08] MEDS: metroNIDAZOLE 500 MG/NS PREMIX 100 ML IV SCH ×2 (13:28→20:44)
--- NOTE | 2021-07-08 13:30 | NUR ---
RECEIVED REPORT FOR PT. AWAITING PT ARRIVAL.
[2021-07-08] MEDS: CEFEPIME 2,000 MG in DEXTROSE 5% 100 ML IV SCH ×2 (13:43→21:04)
--- NOTE | 2021-07-08 13:50 | NUR ---
MOVED PT TO 127 ON NRB - NO DISTRESS NOTED, PLACED PT BACK ON HFNC IN NEW ROOM - PT TOLERATED TRANSFER WELL - O2 SATS REMAINED IN MID 90S DURING TRANSFER
--- NOTE | 2021-07-08 13:52 | NUR ---
PT ARRIVED ON UNIT. PT CONDITION IS STABLE. AA&OX1. ON HI-FLOW O2 30L. PT HAS NGT IN PLACE. LACKEY IN PLACE AND FUNCTIONING PROPERLY. SKIN IS WARM, DRY, AND INTACT. PT HAS DRISS PICC LINE RUNNING NS AT 80 ML/HR. WILL CONTINUE TO MONITOR PT CONDITION.
--- NOTE | 2021-07-08 15:30 | NUR ---
PT CONDITION IS STABLE. BREATHING IS SLIGHTLY LABORED. RUNNING IVF PER MD ORDER. WILL CONTINUE TO MONITOR.
--- NOTE | 2021-07-08 15:46 | NUR ---
07/08/21 RD FOLLOW UP COMPLETED PLEASE REFER TO NUTRITION ASSESSMENT UNDER CARE ACTIVITY FOR ESTIMATED NUTRITIONAL NEEDS. 1. RECOMMEND SWALLOW EVALUATION FOR PO INTAKE 2. IF PT FAILS SWALLOW EVAL CONTINUE ON VITAL 1.2 @ 60 ML/HR; FLUSH OF [address] TO FOLLOW-UP 2-3 DAYS, HIGH RISK ALLYSSA RODGERS RD
--- NOTE | 2021-07-08 17:30 | NUR ---
PT CONDITION IS STABLE. PERFORMED BED BATH WITH SAW REPAIRER, PT TOLERATED WELL. EMPTIED OUT LACKEY 600 ML OF URINE. PT DOES NOT APPEAR TO BE IN PAIN OR DISTRESS. WILL CONTINUE TO MONITOR.
--- NOTE | 2021-07-08 19:45 | NUR ---
CHANGE OF SHIFT REPORT GIVEN TO NIGHT NURSE AT BEDSIDE FOR CONTINUITY OF CARE. POC DISCUSSED. PT CONDITION IS STABLE.
[2021-07-08] MEDS: QUEtiapine FUMARATE 100 MG TAB PO SCH (20:45)
--- NOTE | 2021-07-08 21:43 | NUR ---
SPOKE WITH DOCTOR REGARDING HEART RATE OF PATIENT SINUS TACHYCARDIA 140 WITH A BLOOD PRESSURE 130/89. GIVEN TELEPHONE ORDERS. WILL ALSO REPLACE NG TUBE FOR PATIENT WHO REMOVED AND FOLLOW UP A CHEST XRAY. SAUMYA SUMNER RN
[2021-07-08] MEDS ORDERED: METOPROLOL 5 MG/5 ML VIAL IV PRN (21:55)
[2021-07-08] MEDS ORDERED: METOPROLOL 5 MG/5 ML VIAL IV SCH (22:15)
[2021-07-09] VITALS: BP 147/100
[2021-07-09] MEDS: metroNIDAZOLE 500 MG/NS PREMIX 100 ML IV SCH ×3 (04:23→23:06)
[2021-07-09] MEDS: CEFEPIME 2,000 MG in DEXTROSE 5% 100 ML IV SCH ×3 (04:23→23:06)
[2021-07-09 05:04] VITALS: BP 156/100
[2021-07-09] MEDS: NACL 0.9% 1,000 ML IV SCH ×2 (06:16→23:14)
[2021-07-09 07:09] LABS: BASOPHILS % (AUTO) 0.1 % (0.0-2.0); EOSINOPHILS % (AUTO) 0.1 % (0.0-4.0); HEMATOCRIT 38.3 % (36-52); HEMOGLOBIN 13.1 g/dL (12.0-18.0); LYMPHOCYTES % (AUTO) 7.3 % (20.5-51.1); MEAN CORPUSCULAR HEMOGLOBIN 32 pg (27-31); MEAN CORPUSCULAR HGB CONC 34 g/dL (33-37); MEAN CORPUSCULAR VOLUME 92.2 fL (80-94); MONOCYTES # (AUTO) 1.4 K/uL (0.8-1.0); MONOCYTES % (AUTO) 9.8 % (1.7-9.3); NEUTROPHILS # (AUTO) 11.6 K/uL (1.8-7.7); NEUTROPHILS % (AUTO) 82.7 % (42.2-75.2); PLATELET COUNT (AUTO) 300 K/uL (140-450); RED BLOOD CELL COUNT(AUTO) 4.15 MIL/uL (4.20-6.10); RED CELL DISTRIBUTION WIDTH 13.4 % (11.6-13.7)
[2021-07-09 07:29] LABS: ANION GAP 15.1 (8-16); CARBON DIOXIDE 23.8 mmol/L (21-32); CREATININE 0.7 mg/dL (0.6-1.3)
--- NOTE | 2021-07-09 07:30 | NUR ---
HANDOFF WITH CONSTANZA MENDOZA. SAUMYA SUMNER RN
--- NOTE | 2021-07-09 07:32 | NUR ---
RECEIVED BEDSIDE REPORT FROM RAILROAD FIRER/FIREMAN NURSE FOR CONTINUITY OF CARE. PT IS AA&OX1. ON HI-FLOW O2 30L FIO2 40%. NO S/S OF RESPIRATORY ISSUES NOTED. NGT WAS REMOVED WILL TRY TO REINSERT ANOTHER ONE. LACKEY IN PLACE AND FUNCTIONING PROPERLY. SKIN IS WARM, DRY, AND INTACT. PT HAS DRISS PICC LINE RUNNING NS AT 80 ML/HR. RESTRAINTS IN PLACE. NO SKIN BREAKDOWN AND RENEWAL AT 0652. PLAN OF CARE DISCUSSED. SAFETY PRECAUTIONS IN PLACE. WILL CONTINUE TO MONITOR.
[2021-07-09 08:00] VITALS: BP 140/96
[2021-07-09 08:11] LABS: POTASSIUM 2.9 mmol/L (3.5-5.1)
--- NOTE | 2021-07-09 08:30 | NUR ---
ENDORSED TO KELLEN RN FOR CONTINUITY OF CARE. PT IS STABLE.
[2021-07-09] MEDS: VITAMIN D 400 IU TAB PO SCH (09:00)
[2021-07-09] MEDS: MULTIVITAMIN/MINERALS 15 ML UDBTL GT SCH (09:00)
[2021-07-09] MEDS: DOCUSATE 100 MG/10 ML UDC GT SCH (09:00)
[2021-07-09] MEDS: ASCORBIC ACID 500 MG/5 ML ORASYR GT SCH ×2 (09:00→23:07)
[2021-07-09] MEDS: FAMOTIDINE 20 MG/2 ML VIAL IV SCH ×2 (10:37→23:07)
[2021-07-09] MEDS: DEXAMETHASONE 4 MG/ML VIAL IVP SCH (10:37)
[2021-07-09] MEDS: ENOXAPARIN 60 MG/0.6 ML SYR SUBQ SCH ×2 (10:39→23:09)
[2021-07-09] MEDS: KCL 20 MEQ/WATER INJ PREMIX 200 ML IV PRN (10:46)
[2021-07-09 12:00] VITALS: BP 142/103
[2021-07-09 16:00] VITALS: BP 131/93
[2021-07-09 20:00] VITALS: BP 136/93
--- NOTE | 2021-07-09 20:45 | NUR ---
Assumed care. A/O able to verbalize needs. I am told he was in restraints wrist bilateral, but the RN saw fit to stop them. I went a head and removed them from his wrist. He denies pain at this time. He is no [id number] distress or otherwise. I am told he is able to swallow thin liquids. I gave him a sip of apple juice. He tolerated it well. Will follow up with the AM RNs contact with the MD to change the patients diet. He had an NG tube earlier , which he ended up pulling out. Family did call about him. I deferred them to the patients cell phone. He is awake and he is able ti tell them how he is doing. WIll continue to monitor.
[2021-07-09] MEDS: QUEtiapine FUMARATE 100 MG TAB PO SCH (23:07)
[2021-07-10] VITALS: BP 143/88
[2021-07-10 04:00] VITALS: BP 120/87
[2021-07-10] MEDS: metroNIDAZOLE 500 MG/NS PREMIX 100 ML IV SCH ×3 (05:42→21:09)
[2021-07-10] MEDS: CEFEPIME 2,000 MG in DEXTROSE 5% 100 ML IV SCH ×3 (05:42→21:09)
[2021-07-10 06:35] LABS: BASOPHILS % (AUTO) 0.1 % (0.0-2.0); EOSINOPHILS % (AUTO) 0.2 % (0.0-4.0); HEMATOCRIT 39.5 % (36-52); HEMOGLOBIN 13.2 g/dL (12.0-18.0); LYMPHOCYTES # (AUTO) 1.2 K/uL (2.0-11.5); LYMPHOCYTES % (AUTO) 12.5 % (20.5-51.1); MEAN CORPUSCULAR HEMOGLOBIN 31 pg (27-31); MEAN CORPUSCULAR HGB CONC 34 g/dL (33-37); MEAN CORPUSCULAR VOLUME 93.9 fL (80-94); MONOCYTES % (AUTO) 9.8 % (1.7-9.3); NEUTROPHILS # (AUTO) 7.5 K/uL (1.8-7.7); NEUTROPHILS % (AUTO) 77.4 % (42.2-75.2); PLATELET COUNT (AUTO) 286 K/uL (140-450); RED CELL DISTRIBUTION WIDTH 13.9 % (11.6-13.7); WHITE BLOOD COUNT (AUTO) 9.7 K/uL (4.8-10.8)
[2021-07-10 07:05] LABS: ANION GAP 7.8 (8-16); CARBON DIOXIDE 31.5 mmol/L (21-32); CREATININE 0.8 mg/dL (0.6-1.3); POTASSIUM 3.3 mmol/L (3.5-5.1)
[2021-07-10 08:00] VITALS: BP 99/64
--- NOTE | 2021-07-10 08:00 | NUR ---
NURSE REPORT REPORT OBTAINED FROM SUE BRIGHT AT 0750 AND THIS NURSE ASSUMED CARE OF THIS PATIENT. VSS. AFEB. IV INFUSING AT 80 ML/HR INTO DRISS PICC LINE. ON DROPLET PRECAUTIONS FOR COVID +.
[2021-07-10] MEDS: DEXAMETHASONE 4 MG/ML VIAL IVP SCH (09:00)
[2021-07-10] MEDS: VITAMIN D 400 IU TAB PO SCH (09:00)
[2021-07-10] MEDS: ENOXAPARIN 60 MG/0.6 ML SYR SUBQ SCH (09:00)
[2021-07-10] MEDS: ASCORBIC ACID 500 MG/5 ML ORASYR GT SCH ×2 (09:00→21:09)
[2021-07-10] MEDS: MULTIVITAMIN/MINERALS 15 ML UDBTL GT SCH (09:00)
[2021-07-10] MEDS: FAMOTIDINE 20 MG/2 ML VIAL IV SCH ×2 (09:00→21:10)
[2021-07-10] MEDS: DOCUSATE 100 MG/10 ML UDC GT SCH (09:00)
--- NOTE | 2021-07-10 10:46 | NUR ---
NURSE CARE PATIENT ABLE TO TAKE PO MEDS CRUSHED AND GIVEN IN APPLE SAUCE. PATIENT ASKED FOR ICE WATER AND ASKED WHEN HE CAN EAT. HE STATED HE CAN EAT ANYTHING. WHEN HE WAS GIVEN ICE, HE HAD A DIFFICULT TIME WHEN TOO MUCH ICE WAS TAKEN.
[2021-07-10] MEDS: POTASSIUM CHLORIDE 10 MEQ TABER PO PRN (11:34)
[2021-07-10 12:00] VITALS: BP 111/77
--- NOTE | 2021-07-10 13:00 | NUR ---
NURSE NOTES VSS. AFEB. ON IVPB FLAGYL AND MAXIPIME. TELE MONITOR SR 75 TO 101. NO C/O PAIN OR DISCOMFORT. HAD TALKED TO PATIENT OFF OF THIS NURSE CELLPHONE WITH THE USE OF THE SPEAKER. UPDATE GIVEN THEN.
[2021-07-10] MEDS: NACL 0.9% 1,000 ML IV SCH ×2 (16:00→17:00)
--- NOTE | 2021-07-10 16:00 | NUR ---
NURSE NOTES VSS. AFEB. TELE MONITOR SHOWS SR 86. NO C/O PAIN OR DISCOMFORT. OTHER FAMILY MEMBERS WANTED TO TALK TO PATIENT. PATIENT ABLE TO TALK TO FAMILY OUTSIDE THE PATIENT ROOM WINDOW WITH USE OF THIS NURSE SPEAKER ON HER CELLPHONE. EXPLAINED TO PATIENT FAMILY THAT HE CAN'T BE TALKING TOO MUCH SINCE TALKING MAKES HIM COUGH ALOT.
--- NOTE | 2021-07-10 19:15 | NUR ---
NURSE REPORT REPORT GIVEN TO NIGHT NURSE DEANGELO TO ASSUME CARE OF PATIENT. GIVEN UPDATE ON PATIENT AND ALL QUESTIONS ANSWERED BY THIS NURSE. PATIENT NOT ABLE TO START FOOD, SINCE ON ICE CHIPS HE COULD NOT SWALLOW. MEDS CRUSHED AND GIVEN IN APPLE SAUCE.
[2021-07-10 20:00] VITALS: BP 115/77
[2021-07-10] MEDS: QUEtiapine FUMARATE 100 MG TAB PO SCH (21:10)
[2021-07-10] MEDS: APIXABAN 2.5 MG TAB PO SCH (21:27)
[2021-07-11] VITALS: BP 102/68
[2021-07-11 04:00] VITALS: BP 107/77
[2021-07-11] MEDS: CEFEPIME 2,000 MG in DEXTROSE 5% 100 ML IV SCH ×2 (05:12→13:18)
[2021-07-11] MEDS: metroNIDAZOLE 500 MG/NS PREMIX 100 ML IV SCH ×3 (05:27→22:27)
[2021-07-11 06:37] LABS: BASOPHILS % (AUTO) 0.2 % (0.0-2.0); EOSINOPHILS % (AUTO) 0.5 % (0.0-4.0); HEMATOCRIT 35.9 % (36-52); LYMPHOCYTES # (AUTO) 1.4 K/uL (2.0-11.5); LYMPHOCYTES % (AUTO) 16.9 % (20.5-51.1); MEAN CORPUSCULAR HEMOGLOBIN 31 pg (27-31); MEAN CORPUSCULAR HGB CONC 33 g/dL (33-37); MEAN CORPUSCULAR VOLUME 94.2 fL (80-94); MONOCYTES # (AUTO) 0.7 K/uL (0.8-1.0); MONOCYTES % (AUTO) 8.4 % (1.7-9.3); PLATELET COUNT (AUTO) 255 K/uL (140-450); RED BLOOD CELL COUNT(AUTO) 3.81 MIL/uL (4.20-6.10); RED CELL DISTRIBUTION WIDTH 13.8 % (11.6-13.7); WHITE BLOOD COUNT (AUTO) 8.1 K/uL (4.8-10.8)
[2021-07-11 06:57] LABS: ANION GAP 8.8 (8-16); CARBON DIOXIDE 28.7 mmol/L (21-32); CREATININE 0.7 mg/dL (0.6-1.3); POTASSIUM 3.5 mmol/L (3.5-5.1)
--- NOTE | 2021-07-11 07:32 | NUR ---
RECEIVED BEDSIDE REPORT FROM ORDER CALLER NURSE FOR CONTINUITY OF CARE. PT IS AA&OX4. ON 4L NC. RESPIRATIONS EVEN AND UNLABORED. NO S/S OF RESPIRATORY ISSUES NOTED. LACKEY IN PLACE AND FUNCTIONING PROPERLY. ARIAS COLOR. SKIN IS WARM, DRY, AND INTACT. PT HAS DRISS PICC LINE RUNNING NS AT 80 ML/HR. PLAN OF CARE DISCUSSED. SAFETY PRECAUTIONS IN PLACE. WILL CONTINUE TO MONITOR.
[2021-07-11 08:00] VITALS: BP 107/74
[2021-07-11] MEDS: FAMOTIDINE 20 MG/2 ML VIAL IV SCH ×2 (08:57→22:35)
[2021-07-11] MEDS: DEXAMETHASONE 4 MG/ML VIAL IVP SCH (08:57)
[2021-07-11] MEDS: VITAMIN D 400 IU TAB PO SCH (08:57)
[2021-07-11] MEDS: DOCUSATE 100 MG/10 ML UDC GT SCH (08:57)
[2021-07-11] MEDS: NACL 0.9% 1,000 ML IV SCH (08:57)
[2021-07-11] MEDS: ASCORBIC ACID 500 MG/5 ML ORASYR GT SCH ×2 (08:57→22:32)
[2021-07-11] MEDS: APIXABAN 2.5 MG TAB PO SCH ×2 (08:57→21:00)
[2021-07-11] MEDS: MULTIVITAMIN/MINERALS 15 ML UDBTL GT SCH (08:57)
--- NOTE | 2021-07-11 09:30 | NUR ---
ALL SCHEDULED MEDS GIVEN. PT IS STABLE. NO DISTRESS NOTED. WILL CONTINUE TO MONITOR.
--- NOTE | 2021-07-11 11:45 | NUR ---
CHECKED ON PATIENT. PT IS STABLE. NO DISTRESS NOTED. WILL CONTINUE TO MONITOR.
[2021-07-11 12:00] VITALS: BP 123/86
--- NOTE | 2021-07-11 14:22 | NUR ---
DC PLANNING: KALI SPOKE WITH BALTAZAR AT [facility], UPDATED CLINICAL INFORMATION GIVEN INCLUDING ORDER FOR ST EVALUATION FOR SWALLOWING. WHEN READY TO ORDER HOME O2 CM WILL USE [facility] CONTRACTED COMPANY [employer], PHONE NUMBER [phone]. ENDORSED THAT PATIENT HAS BEEN PULLING OUT HIS NGT AND WILL NEED A SOURCE OF NUTRITION SUPPLEMENTATION. PLAN AT THIS TIME IS TO DC HOME ON HOME O2 WHEN CLINICALLY STABLE DEPENDING ON THE PATIENTS MENTATION AND NUTRITIONAL SOURCE. CM WILL FOLLOW FOR NEEDS. Addendum: 07/12/21 at 1101 by Piedad Kinney CM DC PLANNING: PATIENT PASSED HIS SWALLOW EVAL AND HAS BEEN STARTED ON A PUREED DIET. CM SPOKE WITH PATIENTS CONSTANZA ABEBE AND ASKED FOR A P.T. EVAL ORDER WHEN THE ATTENDING ROUNDS. CM WILL GET O2 SATS ON RA TO MOVE FORWARD WITH HOME O2. DC PLAN DEPENDS ON PATIENTS MOBILITY, WILL NEED HOME HEALTH P.T. IF APPROPRIATE FOR HOME VS SNF. CM WILL FOLLOW FOR NEEDS. Addendum: 07/13/21 at 1524 by Piedad Kinney CM DC PLANNING: ORDER RECEIVED FOR DC PLANNING TO [facility]. CM SPOKE WITH PAVAN ELLIS CM FOR [facility] SHE STATES THAT [facility] IS NOT CONTRACTED WITH [facility] AND THAT SHE WILL START LOOKING FOR PLACEMENT. DO NOT ANTICIPATE DC TODAY, CM WILL FOLLOW FOR NEEDS. Addendum: 07/14/21 at 1050 by Piedad Kinney CM DC PLANNING: CM FOLLOWED UP WITH KALI BROWNE AT [facility], STATES THEY ARE WORKING TO FIND SNF PLACEMENT FOR THE PATIENT. ENDORSED THAT HE IS READY FOR DC TODAY, CM WILL FOLLOW FOR NEEDS. Addendum: 07/14/21 at 1620 by Piedad Kinney CM DC PLANNING: CM SPOKE WITH PAVAN ELLIS FROM [facility], STATES THEY HAVE NOT YET FOUND AN ACCEPTING SNF FOR PATIENT TO DC TO, DIFFICULTY WITH PLACEMENT BECAUSE OF COVID STATUS. CM CONFIRMED THAT THEY HAVE REFERRED TO [facility], ALSO SUGGESTED [facility] AND [facility]. ENDORSED THAT [facility] CM WILL NEED TO SPEAK WITH NURSING AFTER 4:30 FOR SNF INFORMATION AND TRANSPORTATION ARRANGEMENTS AND [employer] END POLISHER TIME. CM WILL FOLLOW FOR NEEDS. Addendum: 07/15/21 at 1134 by Piedad Kinney DC PLANNING: CM SPOKE WITH PAVAN ELLIS FROM [facility], FAXED H&P AND MEDICATIONS REQUESTED. NO SNF BED AVAILABLE YET, PAVAN STATES THAT [facility] IS NOT CONTRACTED WITH [facility]. ALSO SPOKE WITH Kevin PIERRE, STATES THAT PATIENT IS VERY WEAK AND IS DE-SATTING TO THE 70'S WITH EXERTION. [facility] WILL SET UP TRANSPORT ONCE THEY FIND AN ACCEPTING SNF FACILITY. AFTER HOURS AND WEEKEND PHONE NUMBER FOR [facility] FOR FOLLOW UP IS [phone]. CM WILL FOLLOW FOR NEEDS. Addendum: 07/18/21 at 1617 by Piedad Kinney CM DC PLANNING: KALI SPOKE WITH KALI LEDESMA FOR [facility] ([phone]), [facility] THE PATIENT. UPDATED NEGATIVE COVID RESULTS FAXED TO [facility], NO CONFIRMATION YET OF DC TODAY. KALI WILL FOLLOW FOR NEEDS. Addendum: 07/19/21 at 1103 by Piedad Kinney CM DC PLANNING: CM LEFT FOR [employer] ASKING THAT [facility] BE REIMBURSED FOR ADMINISTRATIVE DAYS SINCE THE DC ORDER ON 07/13 THEY WERE NOTIFIED THAT DAY AND STARTED LOOKING FOR SNF PLACEMENT. KALI WILL FOLLOW FOR NEEDS. Addendum: 07/19/21 at 1613 by Piedad Kinney CM DC PLANNING: KALI RECEIVED A CALL FROM KALI LEDESMA AT [facility]. TOLD ORIGINALLY THAT THE PATIENT WAS GOING TO [facility], NOW CANCELLED THE FACILITY ASSIGNED THE BED TO ANOTHER PATIENT. [place]SP[place] ARR[place] [facility] [place][phone][place] 6 [place], TRANSPORT WILL BE CANCELLED BY [facility] IF THE [facility] DOES NOT ASSIGN ANOTHER ROOM. [facility] CM WILL NOTIFY THE PATIENTS RN IF HE IS GOING TO DC, CM ENDORSED THE PLAN TO HER. KALI ALSO SPOKE WITH THE PATIENTS TO LET HER KNOW THAT THE PATIENT MIGHT DC TODAY. CM WILL FOLLOW FOR NEEDS.
--- NOTE | 2021-07-11 14:50 | NUR ---
SWALLOW EVAL COMPLETED. ST CLEARED PATIENT ON PUREE DIET W/ NECTAR THICKENED LIQUIDS.
--- NOTE | 2021-07-11 14:54 | NUR ---
PT WAS SEEN FOR DYSPHAGIA. PT WAS ABLE TO SAFELY SWALLOW PUREE DIET WITH NECTAR THICK LIQUID. MILD COUGH WAS PRESENT FOR THIN LIQUID
--- NOTE | 2021-07-11 15:22 | NUR ---
07/11/21 RD FOLLOW UP COMPLETED PLEASE REFER TO NUTRITION ASSESSMENT UNDER CARE ACTIVITY FOR ESTIMATED NUTRITIONAL NEEDS. 1.CONTINUE VITAL AF 1.2 @65 ML/H 2.CONTINUE FREE WATER FLUSH OF 100 ML Q4H 3. RECOMMEND SWALLOW EVAL FOR PO INTAKE. 4. RD TO FOLLOW-UP 2-3 DAYS, HIGH RISK GLENDY WEI, RD
[2021-07-11 16:00] VITALS: BP 108/67
--- NOTE | 2021-07-11 16:30 | NUR ---
CHECKED ON PATIENT. PT IS STABLE. NO DISTRESS NOTED. WILL CONTINUE TO MONITOR.
--- NOTE | 2021-07-11 19:30 | NUR ---
ENDORSED TO ASSOCIATE PROFESSOR OF [employer]IN[employer]ICE NURSE FOR CONTINUITY OF CARE. PT IS STABLE.
--- NOTE | 2021-07-11 19:30 | NUR ---
RECEIVED REPORT FROM RN DAYSHIFT NURSE AT BEDSIDE FOR CONTINUITY OF CARE, PT IN STABLE CONDITION.
[2021-07-11 20:00] VITALS: BP 101/74
--- NOTE | 2021-07-11 20:00 | NUR ---
PT CHANGED IN BED HE IS DRAINING BLOODY URINE. HE ALSO HAD A MODERATE BM . HE CONTINUES ON 4 LITERS N/C HE HAS NO C/O OF PAIN OR DISTRESS. V/S FOLLOWS: T 99.1 P 106 R 18 B/P 101/74 02 95%. IV SITE INTACT WITH RIGHT UPPER ARM PICC LINE RUNNING NORMAL SALINE AT 80MLS/HR. ALL ISOLATION DROPLET AND FALLS PRECAUTIONS IN PLACE.
--- NOTE | 2021-07-11 21:35 | NUR ---
PT GIVEN ORDERED ELIQUIS , SEROQUEL AND FLAGYL IVPB HUNG AND RUNNING AND VITAMIN C PO WELL IVP PEPCID. IV BG FLAGYL HUNG AND RUNNING AT 100MLS/HR ORDERED. ALL ORDERED PRECAUTIONS IN PLACE.
[2021-07-11] MEDS ORDERED: CRUSHER, PILL MC ONE (22:25)
[2021-07-11] MEDS: QUEtiapine FUMARATE 100 MG TAB PO SCH (22:30)
--- NOTE | 2021-07-11 22:45 | NUR ---
[facility] CEFEPIME HUNG AND RUNNING AT 100MLS/HR ORDERED. ALL ORDERED PRECAUTIONS IN PLACE.
[2021-07-12] VITALS: BP 111/71
--- NOTE | 2021-07-12 | NUR ---
PT IN BED RESTING NO S/S OF PAIN OR DISTRESS NOTED 02 CONTINUES AT 4 LITERS VIA N/C. V/S FOLLOWS: T 98.2 P 83 R 20 B/P 111/71 02 99%. ALL ORDERED PRECAUTIONS IN PLACE.
[2021-07-12] MEDS: NACL 0.9% 1,000 ML IV SCH ×3 (00:03→23:16)
[2021-07-12 04:00] VITALS: BP 111/71
[2021-07-12] MEDS: metroNIDAZOLE 500 MG/NS PREMIX 100 ML IV SCH ×3 (05:27→21:11)
--- NOTE | 2021-07-12 05:42 | NUR ---
PT IN BED SLEEPING FLAGYL HUNG AND RUNNING ORDERED. BLOOD DRAWS AT BEDSIDE.
[2021-07-12 06:32] LABS: BASOPHILS % (AUTO) 0.2 % (0.0-2.0); EOSINOPHILS # (AUTO) 0.1 K/uL (0-0.4); EOSINOPHILS % (AUTO) 1.3 % (0.0-4.0); HEMATOCRIT 34.6 % (36-52); LYMPHOCYTES # (AUTO) 1.7 K/uL (2.0-11.5); LYMPHOCYTES % (AUTO) 18.2 % (20.5-51.1); MEAN CORPUSCULAR HEMOGLOBIN 32 pg (27-31); MEAN CORPUSCULAR HGB CONC 35 g/dL (33-37); MEAN CORPUSCULAR VOLUME 92.1 fL (80-94); MONOCYTES # (AUTO) 0.7 K/uL (0.8-1.0); MONOCYTES % (AUTO) 7.5 % (1.7-9.3); NEUTROPHILS # (AUTO) 6.7 K/uL (1.8-7.7); NEUTROPHILS % (AUTO) 72.8 % (42.2-75.2); PLATELET COUNT (AUTO) 256 K/uL (140-450); RED BLOOD CELL COUNT(AUTO) 3.76 MIL/uL (4.20-6.10); RED CELL DISTRIBUTION WIDTH 13.4 % (11.6-13.7); WHITE BLOOD COUNT (AUTO) 9.1 K/uL (4.8-10.8)
--- NOTE | 2021-07-12 06:45 | NUR ---
CEFEPIME HUNG AND RUNNING ORDERED. PT ASLEEP 02 97% NO S/S OF PAIN OR DISTRESS NOTED.
[2021-07-12 07:00] LABS: ANION GAP 7.6 (8-16); CARBON DIOXIDE 30.6 mmol/L (21-32); CREATININE 0.6 mg/dL (0.6-1.3); POTASSIUM 3.2 mmol/L (3.5-5.1)
[2021-07-12] MEDS: CEFEPIME 2,000 MG in DEXTROSE 5% 100 ML IV SCH ×5 (07:04→21:11)
[2021-07-12 08:00] VITALS: BP 91/63
--- NOTE | 2021-07-12 08:06 | NUR ---
Patient awake, alert and able to follow simple commands. Currently on 4 L of nasal canula,breathing easy, unlabored and has intermittent dry cough. Vitals stable, safety co measures in place with call light within reach and bed lowered.
--- NOTE | 2021-07-12 08:23 | NUR ---
SATURATION 98% ON SUPPLEMENTAL OXYGEN AT 4 LPM VIA NC TITRATED FIO2 TO 3 LPM
[2021-07-12] MEDS: APIXABAN 2.5 MG TAB PO SCH (09:00)
[2021-07-12] MEDS: VITAMIN D 400 IU TAB PO SCH (09:29)
[2021-07-12] MEDS: DOCUSATE 100 MG/10 ML UDC GT SCH (09:29)
[2021-07-12] MEDS: ASCORBIC ACID 500 MG/5 ML ORASYR GT SCH ×2 (09:29→21:10)
[2021-07-12] MEDS: FAMOTIDINE 20 MG/2 ML VIAL IV SCH ×2 (09:30→21:11)
[2021-07-12] MEDS: MULTIVITAMIN/MINERALS 15 ML UDBTL GT SCH (09:33)
--- NOTE | 2021-07-12 09:35 | NUR ---
Active bleeding noted in urinary catheter,notified physician, held eliquis and awaiting further orders.
[2021-07-12 15:00] VITALS: BP 91/63
[2021-07-12] MEDS: POTASSIUM CHLORIDE 10 MEQ TABER PO PRN (18:27)
[2021-07-12] MEDS: QUEtiapine FUMARATE 100 MG TAB PO SCH (21:12)
[2021-07-12 21:30] VITALS: BP 117/76
[2021-07-13 00:30] VITALS: BP 113/78
[2021-07-13 04:00] VITALS: BP 109/76
[2021-07-13 06:22] LABS: BASOPHILS % (AUTO) 0.5 % (0.0-2.0); EOSINOPHILS # (AUTO) 0.2 K/uL (0-0.4); EOSINOPHILS % (AUTO) 2.8 % (0.0-4.0); HEMATOCRIT 36.1 % (36-52); HEMOGLOBIN 12.2 g/dL (12.0-18.0); LYMPHOCYTES # (AUTO) 1.3 K/uL (2.0-11.5); LYMPHOCYTES % (AUTO) 15.1 % (20.5-51.1); MEAN CORPUSCULAR HEMOGLOBIN 32 pg (27-31); MEAN CORPUSCULAR HGB CONC 34 g/dL (33-37); MEAN CORPUSCULAR VOLUME 94.2 fL (80-94); MONOCYTES # (AUTO) 0.7 K/uL (0.8-1.0); MONOCYTES % (AUTO) 7.7 % (1.7-9.3); NEUTROPHILS # (AUTO) 6.6 K/uL (1.8-7.7); NEUTROPHILS % (AUTO) 73.9 % (42.2-75.2); PLATELET COUNT (AUTO) 245 K/uL (140-450); RED BLOOD CELL COUNT(AUTO) 3.83 MIL/uL (4.20-6.10); RED CELL DISTRIBUTION WIDTH 13.7 % (11.6-13.7); WHITE BLOOD COUNT (AUTO) 8.9 K/uL (4.8-10.8)
[2021-07-13 06:26] LABS: ANION GAP 9.8 (8-16); CARBON DIOXIDE 30.1 mmol/L (21-32); CREATININE 0.7 mg/dL (0.6-1.3); POTASSIUM 3.9 mmol/L (3.5-5.1)
--- NOTE | 2021-07-13 07:20 | NUR ---
REPORT TO AM RN, PT SLEPT AT INTERVALS, THEN SLEPT STEADILY AFTER 3 AM. AFEBRILE ALL SHIFTS HIS AM BLOOD PM CARE DONE, PT TOLERATED WELL. POSITIONED COMFORTABLY AT PT'S PREFERENCE TO LAY SUPINE. NO RESP DISTRESS NOTED-TRACHE TO VENT AT ORDERED SETTINGS,PO2 THIS AM 99%.
--- NOTE | 2021-07-13 07:45 | NUR ---
Patient awake, alert and oriented, able to verbalize needs. Patient has some generalized weakness and remains on Oxygen. Safety co measures in place with call light, bed lowered and has no further needs.
[2021-07-13 08:00] VITALS: BP 103/79
--- NOTE | 2021-07-13 08:00 | NUR ---
RESTING WELL NO RESPIRATORY DISTRESS NOTED GOOD CHEST RISE BREATH SOUNDS DECREASED BILATERAL NO EVIDENCE OF RHONCHI RALE OR WHEEZE SATURATION 100% ON SUPPLEMENTAL OXYGEN AT 3 LPM VIA NC DECREASED FIO2 TO 2 LPM AVIONICS SHOP SUPERVISOR TO MONITOR AND NOTIFY DAY/RN
--- NOTE | 2021-07-13 09:46 | NUR ---
Blood noted in patient's urinary catheter. Eliquis stopped yesterday and Dr Salvador is aware.
[2021-07-13] MEDS: VITAMIN D 400 IU TAB PO SCH (09:55)
[2021-07-13] MEDS: FAMOTIDINE 20 MG/2 ML VIAL IV SCH ×2 (09:56→21:03)
[2021-07-13] MEDS: MULTIVITAMIN/MINERALS 15 ML UDBTL GT SCH (09:56)
[2021-07-13] MEDS: ASCORBIC ACID 500 MG/5 ML ORASYR GT SCH ×2 (09:56→21:03)
[2021-07-13] MEDS: DOCUSATE 100 MG/10 ML UDC GT SCH (09:57)
[2021-07-13 12:00] VITALS: BP 106/74
[2021-07-13] MEDS: NACL 0.9% 1,000 ML IV SCH (12:58)
[2021-07-13] MEDS ORDERED: ASCO-672 GT (14:01)
--- NOTE | 2021-07-13 15:08 | NUR ---
07/13/21 RD FOLLOW UP COMPLETED PLEASE REFER TO NUTRITION ASSESSMENT UNDER CARE ACTIVITY FOR ESTIMATED NUTRITIONAL NEEDS. 1. CONTINUE PUREE NECTAR LIQUID DIET MEDICALLY APPROPRIATE 2. IF/WHEN MEDICALLY APPROPRIATE RECOMMEND SWALLOW EVAL FOR DIET ADVANCING 3. RECOMMEND ENSURE BID FOR ADDITIONAL KCAL/PROTEIN 4. RD FOLLOW UP 3-5 DAYS, MODERATE RISK REVIEWED BY GLENDY WEI RD
[2021-07-13 16:00] VITALS: BP 106/74
--- NOTE | 2021-07-13 20:29 | NUR ---
PT SEEN AND ASSESSED. PT IS ON HIGH FLOW BUBBLE NASAL CANNULA 3L . SPO2 98%. NO RESPIRATORY DISTRESS NOTED AT THIS TIME. WILL CONTINUE TO MONITOR PT.
[2021-07-13 20:45] VITALS: BP 92/53
[2021-07-13] MEDS: QUEtiapine FUMARATE 100 MG TAB PO SCH (21:04)
[2021-07-14 00:20] VITALS: BP 121/72
[2021-07-14 04:30] VITALS: BP 94/56
[2021-07-14] MEDS: NACL 0.9% 1,000 ML IV SCH ×3 (06:52→17:37)
--- NOTE | 2021-07-14 07:25 | NUR ---
Report to AM RN. FREQUENT ROUNDS TO ASSESS PO2 LEVEL/ RESP STATUS THROUGHOUT SHIFT. PT SLEPT WELL MOST OF SHIFT, SCHED MEDS GIVEN PT TOLERATED WELL. PT IS ON 3 L OXYGEN VIA N/C, PO2 W/ MAINTAINED AT 93% AND HIGHER. LAST VS WNL, RES REG NON-LABORED, PT STATED HE FELT BETTER, PO2 96%, THIS AM.
[2021-07-14 08:00] VITALS: BP 116/78
--- NOTE | 2021-07-14 08:10 | NUR ---
RECEIVED PATIENT CARE AND REPORT FROM [facility] NURSE. PT A&OX4, SEMI-FOWLERS IN BED, NO VISIBLE S/S OF DISTRESS OR DISCOMFORT. PATIENT DENIES ANY PAIN OR SOB AT. ALL NEEDS HAVE BEEN MET AT THIS TIME.
[2021-07-14] MEDS: DOCUSATE 100 MG/10 ML UDC GT SCH (08:58)
[2021-07-14] MEDS: VITAMIN D 400 IU TAB PO SCH (08:58)
[2021-07-14] MEDS: MULTIVITAMIN/MINERALS 15 ML UDBTL GT SCH (08:58)
[2021-07-14] MEDS: ASCORBIC ACID 500 MG/5 ML ORASYR GT SCH ×2 (08:58→20:32)
[2021-07-14] MEDS: FAMOTIDINE 20 MG/2 ML VIAL IV SCH ×2 (08:58→20:32)
[2021-07-14 12:00] VITALS: BP 108/76
[2021-07-14 16:00] VITALS: BP 102/68
--- NOTE | 2021-07-14 18:33 | NUR ---
PATIENT HAD LARGE, SOFT, BROWN BOWEL MOVEMENT.
[2021-07-14] MEDS: QUEtiapine FUMARATE 100 MG TAB PO SCH (20:33)
[2021-07-14 20:44] VITALS: BP 88/65
[2021-07-15] VITALS: BP 92/67
[2021-07-15 04:00] VITALS: BP 111/76
--- NOTE | 2021-07-15 07:07 | NUR ---
HANDOFF WITH KEIRA VENEGAS RN. SAUMYA SUMNER RN
[2021-07-15 08:00] VITALS: BP 105/65
[2021-07-15] MEDS: ASCORBIC ACID 500 MG/5 ML ORASYR GT SCH ×2 (09:51→20:24)
[2021-07-15] MEDS: DOCUSATE 100 MG/10 ML UDC GT SCH (09:51)
[2021-07-15] MEDS: MULTIVITAMIN/MINERALS 15 ML UDBTL GT SCH (09:52)
[2021-07-15] MEDS: VITAMIN D 400 IU TAB PO SCH (09:52)
[2021-07-15] MEDS: FAMOTIDINE 20 MG/2 ML VIAL IV SCH ×2 (09:52→20:24)
[2021-07-15] MEDS: NACL 0.9% 1,000 ML IV SCH (10:08)
[2021-07-15 12:00] VITALS: BP 113/75
[2021-07-15 16:00] VITALS: BP 117/74
--- NOTE | 2021-07-15 18:00 | NUR ---
PATIENT IS A&OX4, RESTING IN BED SEMI-FOWLERS, RECEIVING NS VIA DRISS PICC AT 8ML/HR, RECEIVING O2 AT 2L/MIN VIA NC. NO VISIBLE S/S OF DISTRESS OR DISCOMFORT. PATIENT DENIES ANY SOB OR PAIN. ALL NEEDS HAVE BEEN MET AT THIS TIME.
[2021-07-15] MEDS: QUEtiapine FUMARATE 100 MG TAB PO SCH (20:24)
[2021-07-15 20:33] VITALS: BP 115/76
[2021-07-16] VITALS: BP 120/79
[2021-07-16] MEDS: NACL 0.9% 1,000 ML IV SCH ×2 (01:15→14:05)
[2021-07-16 03:50] VITALS: BP 102/72
--- NOTE | 2021-07-16 07:29 | NUR ---
HANDOFF WITH CONSTANZA NOWAK. SAUMYA SUMNER RN
--- NOTE | 2021-07-16 07:30 | NUR ---
RECEIVED BEDSIDE REPORT FROM CONSULTING SOLUTION DIRECTOR NURSE FOR CONTINUITY OF CARE. AOX4. ON 2L NC. RESPIRATIONS EVEN AND UNLABORED. NO S/S OF RESPIRATORY ISSUES NOTED. NO C/O PAIN AT THIS TIME. LACKEY IN PLACE AND FUNCTIONING PROPERLY. ARIAS COLOR. SKIN IS WARM, DRY, AND INTACT. PT HAS DRISS PICC LINE RUNNING NS AT 80 ML/HR. PLAN OF CARE DISCUSSED. SAFETY PRECAUTIONS IN PLACE. WILL CONTINUE TO MONITOR.
[2021-07-16 08:00] VITALS: BP 98/67
[2021-07-16] MEDS: ASCORBIC ACID 500 MG/5 ML ORASYR GT SCH ×2 (08:40→20:52)
[2021-07-16] MEDS: FAMOTIDINE 20 MG/2 ML VIAL IV SCH ×2 (08:40→20:53)
[2021-07-16] MEDS: DOCUSATE 100 MG/10 ML UDC GT SCH (08:40)
[2021-07-16] MEDS: VITAMIN D 400 IU TAB PO SCH (08:40)
--- NOTE | 2021-07-16 08:40 | NUR ---
DUE MEDS GIVEN. TOLERATED WELL.
[2021-07-16] MEDS: MULTIVITAMIN/MINERALS 1 TAB GT SCH (09:20)
--- NOTE | 2021-07-16 11:00 | NUR ---
PT AWAKE IN BED, NO COMPLAINTS AT TIS TIME
[2021-07-16 12:00] VITALS: BP 106/70
--- NOTE | 2021-07-16 13:15 | NUR ---
AWAKE IN BED, NO C/O PAIN, NO SOB ON 2L NC
--- NOTE | 2021-07-16 15:15 | NUR ---
PT AWAKE IN BED, NO C/O PAIN, NO SOB, WITH DRY COUGH
--- NOTE | 2021-07-16 17:30 | NUR ---
CALLED DR JIMENEZ, NOTIFIED ABOUT EPISODES OF DRY COUGH
--- NOTE | 2021-07-16 18:40 | NUR ---
PT IN BED, NO S/SX OF DISTRESS NOTED.
[2021-07-16 20:00] VITALS: BP 105/79
[2021-07-16] MEDS: guaiFENesin 20 MG/ML UDC PO PRN (20:53)
[2021-07-16] MEDS: QUEtiapine FUMARATE 100 MG TAB PO SCH (20:53)
[2021-07-17] MEDS: NACL 0.9% 1,000 ML IV SCH ×2 (01:44→16:16)
[2021-07-17] MEDS: guaiFENesin 20 MG/ML UDC PO PRN ×2 (02:09→21:00)
[2021-07-17 04:00] VITALS: BP 110/81
--- NOTE | 2021-07-17 07:19 | NUR ---
HANDOFF WITH CONSTANZA NOWAK. SAUMYA SUMNER RN
--- NOTE | 2021-07-17 07:30 | NUR ---
RECEIVED BEDSIDE REPORT FROM BENZENE WASHER OPERATOR NURSE FOR CONTINUITY OF CARE. AOX4. ON 4L NC. RESPIRATIONS EVEN AND UNLABORED. NO S/S OF RESPIRATORY ISSUES NOTED. NO C/O PAIN AT THIS TIME. LACKEY IN PLACE AND FUNCTIONING PROPERLY. ARIAS COLOR. SKIN IS WARM, DRY, AND INTACT. PT HAS DRISS PICC LINE RUNNING NS AT 80 ML/HR. PLAN OF CARE DISCUSSED. SAFETY PRECAUTIONS IN PLACE. WILL CONTINUE TO MONITOR.
--- NOTE | 2021-07-17 07:45 | NUR ---
LOC AWAKE AND ALERT VERBALLY RESPONSIVE GOOD CHEST RISE AND AERATION THROUGHOUT BILATERAL LUNG BREAUX AIRWAY PATENT SATURATION 99% ON SUPPLEMENTAL OXYGEN AT 4 LPM VIA NC TITRATED FIO2 TO 2 LPM DIAMOND SETTER APPRENTICE TO MONITOR ELIU/RN NOTIFIED
[2021-07-17] MEDS: ASCORBIC ACID 500 MG/5 ML ORASYR GT SCH ×2 (08:12→20:47)
[2021-07-17] MEDS: FAMOTIDINE 20 MG/2 ML VIAL IV SCH ×2 (08:12→20:47)
[2021-07-17] MEDS: MULTIVITAMIN/MINERALS 1 TAB GT SCH (08:12)
[2021-07-17] MEDS: VITAMIN D 400 IU TAB PO SCH (08:12)
[2021-07-17] MEDS: DOCUSATE 100 MG/10 ML UDC GT SCH (08:12)
--- NOTE | 2021-07-17 08:40 | NUR ---
DUE MEDS GIVEN. TOLERATED WELL.
--- NOTE | 2021-07-17 11:42 | NUR ---
PT AWAKE IN BED, NO COMPLAINTS AT THIS TIME
--- NOTE | 2021-07-17 13:30 | NUR ---
PT ASLEEP IN BED, APPEARS COMFORTABLE, NO SOB
--- NOTE | 2021-07-17 15:30 | NUR ---
CASI CARE DONE. WITH LARGE BM X1
[2021-07-17 16:00] VITALS: BP 155/88
--- NOTE | 2021-07-17 17:55 | NUR ---
PT AWAKE IN BED, NO C/O PAIN, NO SOB
--- NOTE | 2021-07-17 20:00 | NUR ---
1999 PATIENT RECEIVED IN BED ALERT AND COHERENT, ASKING TO BE CLEANED, PATIENT HAD A SMEAR SOIL IN HIS CHALK, CLEANED AND CHANGED THE CHALKS. TOLERATED WELL PATIENT WAS COMFORTABLE NOW.
[2021-07-17] MEDS: QUEtiapine FUMARATE 100 MG TAB PO SCH (20:48)
--- NOTE | 2021-07-17 21:00 | NUR ---
ALL DUE MEDS WERE GIVEN COUGH SYRUP WAS GIVEN NEEDED FOR COUGHING, NON PRODUCTIVE COUGH.
--- NOTE | 2021-07-17 22:00 | NUR ---
PATIENT WAS ASLEEP IN BED NO DISTRESS AT THIS TIME.
[2021-07-18] VITALS: BP 98/56
--- NOTE | 2021-07-18 | NUR ---
PATIENT WAS ASLEEP IN BED NO DISTRESS AT THIS TIME.
--- NOTE | 2021-07-18 02:00 | NUR ---
PATIENT IS ASLEEP AT THIS TIME
[2021-07-18] MEDS: NACL 0.9% 1,000 ML IV SCH ×3 (03:35→21:00)
--- NOTE | 2021-07-18 07:20 | NUR ---
ALL REPORTS WERE GIVEN TO INCOMING RN, TRANSFER OF CARE ENDORSED.
--- NOTE | 2021-07-18 07:25 | NUR ---
RECEIVE REPORT FROM REPEATER CHIEF NURSE FOR CONTINUITY OF CARE. PATIENT SLEEPING. PATIENT ON RA. NO ACUTE DISTRESS NOTED. CALL LIGHT WITHIN REACH. ALL SAFETY MEASURES IN PLACE. WILL CONTINUE TO MONITOR.
[2021-07-18 08:00] VITALS: BP 112/67
[2021-07-18] MEDS: ASCORBIC ACID 500 MG/5 ML ORASYR GT SCH ×2 (09:59→21:00)
[2021-07-18] MEDS: MULTIVITAMIN/MINERALS 1 TAB GT SCH (09:59)
[2021-07-18] MEDS: DOCUSATE 100 MG/10 ML UDC GT SCH (09:59)
--- NOTE | 2021-07-18 09:59 | NUR ---
PATIENT AWAKE AND ALERT. NO ACUTE DISTRESS NOTED. PATIENT ON ROOM AIR 02 SATING 94%. SCHEDULED MEDICATION GIVEN. CALL LIGHT WITHIN REACH. ALL SAFETY MEASURES IN PLACE. WILL CONTINUE TO MONITOR.
[2021-07-18] MEDS: VITAMIN D 400 IU TAB PO SCH (10:00)
[2021-07-18] MEDS: FAMOTIDINE 20 MG/2 ML VIAL IV SCH ×2 (10:00→21:54)
--- NOTE | 2021-07-18 11:10 | NUR ---
PATIENT SLEEPING. NO ACUTE DISTRESS NOTED. PATIENT ON ROOM AIR. O2 SATING AT 94 %. ALL SAFETY MEASURES IN PLACE. CALL LIGHT WITHIN REACH. WILL CONTINUE TO MONITOR.
--- NOTE | 2021-07-18 13:18 | NUR ---
PATIENT AWAKE AND ALERT. NO ACUTE DISTRESS NOTED. PATIENT ON ROOM AIR. O2 SATING AT 94 %. ALL SAFETY MEASURES IN PLACE. CALL LIGHT WITHIN REACH. WILL CONTINUE TO MONITOR.
--- NOTE | 2021-07-18 13:42 | NUR ---
07/18/21 RD FOLLOW UP COMPLETED PLEASE REFER TO NUTRITION ASSESSMENT UNDER CARE ACTIVITY FOR ESTIMATED NUTRITIONAL NEEDS. 1. CONTINUE PUREE NECTAR THICK LIQUID DIET MEDICALLY APPROPRIATE. 2. IF/ WHEN MEDICALLY APPROPRIATE RECOMMEND SWALLOW EVALUATION FOR DIET ADVANCING. 3. RD FOLLOW UP 5-7 DAYS, LOW RISK. ALLYSSA RODGERS RD
--- NOTE | 2021-07-18 14:00 | NUR ---
PT AT BEDSIDE.
[2021-07-18 16:00] VITALS: BP 106/71
--- NOTE | 2021-07-18 16:14 | NUR ---
PATIENT SLEEPING. NO ACUTE DISTRESS NOTED. PATIENT ON ROOM AIR. PATIENT O2 SATING AT 94%. CALL LIGHT WITHIN REACH. WILL CONTINUE TO MONITOR.
[2021-07-18] MEDS: guaiFENesin 20 MG/ML UDC PO PRN (18:56)
--- NOTE | 2021-07-18 19:20 | NUR ---
ENDORSED TO NIGHTSHIFT NURSE FOR CONTINUITY OF CARE. PATIENT STABLE. ALL SAFETY MEASURES IN PLACE.
[2021-07-18] MEDS: QUEtiapine FUMARATE 100 MG TAB PO SCH (21:55)
--- NOTE | 2021-07-18 22:00 | NUR ---
PATIENT WAS CLEANED, PATIENT HAS A LARGE BM.
--- NOTE | 2021-07-18 22:00 | NUR ---
PATIENT WAS SOILED WITH NUMBER 2, CLEANSED
[2021-07-19] VITALS: BP 106/76
--- NOTE | 2021-07-19 03:00 | NUR ---
PATIENT WAS ASLEEP
--- NOTE | 2021-07-19 04:00 | NUR ---
V/S WNL ASLEEP STILL.
--- NOTE | 2021-07-19 07:25 | NUR ---
RECEIVE REPORT FROM ALARM INVESTIGATOR NURSE FOR CONTINUITY OF CARE. PATIENT SLEEPING. ALL SAFETY MEASURES IN PLACE. CALL LIGHT WITHIN REACH. WILL CONTINUE TO MONITOR.
--- NOTE | 2021-07-19 07:40 | NUR ---
ALL REPORTS WERE GIVEN , TRANSFER OF CARE ENDORSED.
[2021-07-19 08:00] VITALS: BP 116/76
--- NOTE | 2021-07-19 09:41 | NUR ---
PATIENT AWAKE AND ALERT. NO ACUTE DISTRESS NOTED. PATIENT ON ROOM AIR. ALL SAFETY MEASURES IN PLACE. CALL LIGHT WITHIN REACH. WILL CONTINUE TO MONITOR.
[2021-07-19] MEDS: MULTIVITAMIN/MINERALS 1 TAB GT SCH (10:50)
[2021-07-19] MEDS: VITAMIN D 400 IU TAB PO SCH (10:50)
[2021-07-19] MEDS: DOCUSATE 100 MG/10 ML UDC GT SCH (10:50)
[2021-07-19] MEDS: ASCORBIC ACID 500 MG/5 ML ORASYR GT SCH (10:51)
[2021-07-19] MEDS: FAMOTIDINE 20 MG/2 ML VIAL IV SCH (10:51)
--- NOTE | 2021-07-19 11:16 | NUR ---
PATIENT SLEEPING. NO ACUTE DISTRESS NOTED. PATIENT ON ROOM AIR. ALL SAFETY MEASURES IN PLACE. CALL LIGHT WITHIN REACH WILL CONTINUE TO MONITOR.
--- NOTE | 2021-07-19 13:18 | NUR ---
PATIENT AWAKE AND ALERT. NO ACUTE DISTRESS NOTED. PATIENT ON ROOM AIR. PT AT BEDSIDE. ALL SAFETY MEASURES IN PLACE. CALL LIGHT WITHIN REACH WILL CONTINUE TO MONITOR.
--- NOTE | 2021-07-19 15:10 | NUR ---
PATIENT AWAKE AND ALERT. NO ACUTE DISTRESS NOTED. PATIENT ON ROOM AIR. MACHINE TURNER AT BEDSIDE AIDING WITH ADLS. ALL SAFETY MEASURES IN PLACE. CALL LIGHT WITHIN REACH WILL CONTINUE TO MONITOR.
[2021-07-19 16:00] VITALS: BP 109/70
--- NOTE | 2021-07-19 17:14 | NUR ---
PATIENT SLEEPING. NO ACUTE DISTRESS NOTED. PATIENT ON ROOM AIR. ALL SAFETY MEASURES IN PLACE. CALL LIGHT WITHIN REACH WILL CONTINUE TO MONITOR.
--- NOTE | 2021-07-19 18:48 | NUR ---
PATIENT AWAKE AND ALERT. NO ACUTE DISTRESS NOTED. PATIENT ON ROOM AIR. VS STABLE. PATIENT DISCHARGE INFORMATION GIVEN. PATIENT SIGNED AND VERBALIZE UNDERSTANDING. PICC LINE REMOVED BY CONSTANZA ESPINOZA. WRISTBAND REMOVED. ALL BELONGING TAKEN WITH UPON DISCHARGE. PATIENT TRANSPORTED VIA AMBULANCE.
== END 2021-07-19 19:04 | DRG 720 ==
LOC: MED 20:46 → MTU 06-27 00:12 → EDBD 06-27 00:12 → MTU 06-27 06:25 → MIC 07-01 10:35 → MMU 07-08 13:29
PROVIDERS: ADMIT Internal Medicine; ATTEND Internal Medicine
PROC: XW033E5 Introduction of Remdesivir Anti-infective into Peripheral Vein, Percutaneous Approach, New Technology Group 5 (ICD-10-PCS; 2021-06-27)
PROC: 5A0935A Assistance with Respiratory Ventilation, Less than 24 Consecutive Hours, High Flow/Velocity Cannula (ICD-10-PCS; 2021-06-28)
PROC: 5A0935A Assistance with Respiratory Ventilation, Less than 24 Consecutive Hours, High Flow/Velocity Cannula (ICD-10-PCS; 2021-06-29)
PROC: 5A0935A Assistance with Respiratory Ventilation, Less than 24 Consecutive Hours, High Flow/Velocity Cannula (ICD-10-PCS; 2021-06-30)
PROC: 5A1955Z Respiratory Ventilation, Greater than 96 Consecutive Hours (ICD-10-PCS; principal; 2021-07-01)
PROC: 0BH17EZ Insertion of Endotracheal Airway into Trachea, Via Natural or Artificial Opening (ICD-10-PCS; 2021-07-01)
PROC: 5A0935A Assistance with Respiratory Ventilation, Less than 24 Consecutive Hours, High Flow/Velocity Cannula (ICD-10-PCS; 2021-07-01)
PROC: 02HV33Z Insertion of Infusion Device into Superior Vena Cava, Percutaneous Approach (ICD-10-PCS; 2021-07-02)
PROC: 5A0935A Assistance with Respiratory Ventilation, Less than 24 Consecutive Hours, High Flow/Velocity Cannula (ICD-10-PCS; 2021-07-06)
PROC: 5A0935A Assistance with Respiratory Ventilation, Less than 24 Consecutive Hours, High Flow/Velocity Cannula (ICD-10-PCS; 2021-07-06)
PROC: 5A0935A Assistance with Respiratory Ventilation, Less than 24 Consecutive Hours, High Flow/Velocity Cannula (ICD-10-PCS; 2021-07-07)
PROC: 5A0935A Assistance with Respiratory Ventilation, Less than 24 Consecutive Hours, High Flow/Velocity Cannula (ICD-10-PCS; 2021-07-08)
DX: A41.89 Other specified sepsis (principal); J96.01 Acute respiratory failure with hypoxia; J12.82 Pneumonia due to coronavirus disease 2019; J69.0 Pneumonitis due to inhalation of food and vomit; G93.40 Encephalopathy, unspecified; U07.1 COVID-19; E44.0 Moderate protein-calorie malnutrition; D68.59 Other primary thrombophilia; H54.8 Legal blindness, as defined in USA; A08.39 Other viral enteritis; M13.88 Other specified arthritis, other site; Z82.49 Family history of ischemic heart disease and other diseases of the circulatory system; Z68.21 Body mass index [BMI] 21.0-21.9, adult
CPT/HCPCS: 31500; 36415; 36600; 71045; 80048; 80053; 82553; 82803; 83735; 83880; 84484; 85025; 85379; 87081; 92610; 92700; 93005; 94002; 94003; 94660; 96361; 96365; 96375; 97110; 97112; 97116; 97163-GP; 97530; 99291; J0456; J0692; J0696; J1100; J1630; J1650; J2060; J2250; J2270; J2704; J3010; J3480; J3490; J7060; Q0092

== ENCOUNTER 2022-01-01 10:35 | Emergency (ER) | payer MEDICAID, OTHER ==
[~2022-01-01] VITALS: Ht 165.1 cm; Wt 55.3 kg
[~2022-01-01 10:35] MED LIST: ASCO-672 GT
[2022-01-01 10:46] VITALS: BP 141/100
--- NOTE | 2022-01-01 10:50 | NUR ---
DR. HAMM BEDSIDE EVALUATING PT
[2022-01-01] MEDS ORDERED: TOMOMETER 1 DEV DEV MC ONE (10:55)
[2022-01-01] MEDS ORDERED: FLUORESCEIN OPTH STRIP 1 MG ONE (10:56)
[2022-01-01] MEDS ORDERED: TETRACAINE HCL/PF 0.5% OPTH 4 ML BTL ONE (10:56)
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
--- NOTE | 2022-01-01 11:32 | NUR ---
MEJIA FRAIRE AND ADRIANNE WALKED OVER TO LAB
[2022-01-01 11:46] LABS: BASOPHILS % (AUTO) 0.7 % (0.0-2.0); EOSINOPHILS # (AUTO) 0.1 K/uL (0-0.4); EOSINOPHILS % (AUTO) 2.1 % (0.0-4.0); HEMATOCRIT 44.7 % (36-52); HEMOGLOBIN 15.3 g/dL (12.0-18.0); LYMPHOCYTES % (AUTO) 39.6 % (20.5-51.1); MEAN CORPUSCULAR HEMOGLOBIN 31 pg (27-31); MEAN CORPUSCULAR HGB CONC 34 g/dL (33-37); MONOCYTES # (AUTO) 0.4 K/uL (0.8-1.0); MONOCYTES % (AUTO) 8.5 % (1.7-9.3); NEUTROPHILS # (AUTO) 2.5 K/uL (1.8-7.7); NEUTROPHILS % (AUTO) 49.1 % (42.2-75.2); PLATELET COUNT (AUTO) 237 K/uL (140-450); RED BLOOD CELL COUNT(AUTO) 4.97 MIL/uL (4.20-6.10); RED CELL DISTRIBUTION WIDTH 14.9 % (11.6-13.7); WHITE BLOOD COUNT (AUTO) 5.1 K/uL (4.8-10.8)
[2022-01-01 11:54] LABS: ALBUMIN 3.9 g/dL (3.4-5.0); CARBON DIOXIDE 31.4 mmol/L (21-32); CREATININE 0.8 mg/dL (0.6-1.3); POTASSIUM 4.4 mmol/L (3.5-5.1); TOTAL BILIRUBIN 0.6 mg/dL (0.0-1.0)
--- NOTE | 2022-01-01 12:46 | NUR ---
PT PROVIDED WITH JUICE BEDSIDE
--- NOTE | 2022-01-01 13:00 | NUR ---
Patient appears to be resting comfortably in bed. Vital Signs within normal limits. Respirations even and unlabored. PT PROVIDED WITH SNACKS/CRACKERS BEDSIDE
--- NOTE | 2022-01-01 14:09 | NUR ---
PT PROVIDED WITH JONNY OF WATER, JELLO, AND SANDWHICH BEDSIDE
--- NOTE | 2022-01-01 15:05 | NUR ---
Patient appears to be resting comfortably in bed. Vital Signs within normal limits. Respirations even and unlabored.
--- NOTE | 2022-01-01 15:15 | NUR ---
Patient to be transferred to [facility]. Is being transferred due to HIGHER LEVEL OF CARE. Receiving facility has accepting physician and available space. ER physician has signed transfer form. Patient or responsible green party has agreed to transfer and signed form. Patient belongings inventoried and will be sent with patient. Copy of nursing notes, lab reports, EKG, Physicians Orders and X-rays to be sent with patient. Report called to CONSTANZA KING at receiving facility. [facility] ambulance service has been called for transfer. ETA is 1530.
--- NOTE | 2022-01-01 16:04 | NUR ---
CONTACTED [facility] AND SPOKE WITH JERICHO. WAS INFORMED TRANSPORATION SHOULD BE HERE IN 15 MINUTES
[2022-01-01 16:44] VITALS: BP 153/91
--- NOTE | 2022-01-01 16:44 | NUR ---
[facility] TRANSPORATION AT BEDSIDE
--- NOTE | 2022-01-01 16:51 | NUR ---
PT LEFT TO [facility] VIA GURNEY BY PRETTY INIGUEZ
== END 2022-01-01 16:44 | disposition short-term general hospital (02) ==
LOC: MED 10:35
DX: H54.62 Unqualified visual loss, left eye, normal vision right eye (principal); Z20.822 Contact with and (suspected) exposure to COVID-19; Z79.899 Other long term (current) drug therapy
CPT/HCPCS: 36415; 80053; 85025; 99285

== ENCOUNTER 2024-03-30 04:33 | Emergency (ER) | payer OTHER ==
[~2024-03-30] VITALS: Ht 165.1 cm; Wt 56.7 kg
[2024-03-30 04:42] VITALS: BP 148/76; PULSE 99; RESP 24; TEMP 97.4; O2SAT 100
[2024-03-30 06:04] VITALS: O2SAT 100
[2024-03-30 06:39] LABS: BILIRUBIN,URINE 1+ (NEGATIVE); BLOOD, URINE 3+ (NEGATIVE); LEUKOCYTE ESTERASE ,URINE 3+ (NEGATIVE); NITRITE, URINE POSITIVE (NEGATIVE); PROTEIN,URINE 2+ (NEGATIVE); UGLUCOSE NEGATIVE (NEGATIVE)
[2024-03-30 06:42] LABS: APPEARANCE,URINE HAZY (CLEAR)
[2024-03-30 06:44] LABS: COLOR,URINE BROWN (YELLOW)
[2024-03-30 06:58] LABS: BASOPHILS # (AUTO) 0.1 K/uL (0.00-0.22); BASOPHILS % (AUTO) 0.3 % (0.0-2.0); HEMATOCRIT 39.8 % (36-52); HEMOGLOBIN 13.6 g/dL (12.0-18.0); LYMPHOCYTES # (AUTO) 0.8 K/uL (2.0-11.5); MEAN CORPUSCULAR HEMOGLOBIN 31 pg (27-31); MEAN CORPUSCULAR HGB CONC 34 g/dL (33-37); MEAN CORPUSCULAR VOLUME 90.7 fL (80-94); MONOCYTES # (AUTO) 0.9 K/uL (0.8-1.0); MONOCYTES % (AUTO) 4.8 % (1.7-9.3); NEUTROPHILS # (AUTO) 17.2 K/uL (1.8-7.7); PLATELET COUNT (AUTO) 342 K/uL (140-450); RED BLOOD CELL COUNT(AUTO) 4.39 MIL/uL (4.20-6.10); RED CELL DISTRIBUTION WIDTH 13.6 % (11.6-13.7)
[2024-03-30] MEDS: NACL 0.9% 1,000 ML IV ONE (07:02)
[2024-03-30 07:07] LABS: ICTOTEST NEGATIVE (NEGATIVE)
[2024-03-30 07:08] LABS: WBC,URINE TOO MANY TO COUNT /HPF (0-5)
[2024-03-30 07:08] LABS: ANION GAP 16.4 (8-16); CALCIUM 9.1 mg/dL (8.5-10.1); CARBON DIOXIDE 23.2 mmol/L (21-32); CREATININE 0.9 mg/dL (0.6-1.3); POTASSIUM 3.6 mmol/L (3.5-5.1)
[2024-03-30 07:10] LABS: BACTERIA,URINE 1+ /HPF (None Seen); RBC,URINE 80-100 /HPF (0-5); SQUAMOUS EPITHELIAL CELL,UR 0-3 (FEW) /LPF (0-3 (FEW))
[2024-03-30 07:18] LABS: LYMPHOCYTES % (AUTO) 4.5 % (20.5-51.1); NEUTROPHILS % (AUTO) 90.4 % (42.2-75.2)
[2024-03-30 07:22] VITALS: O2SAT 100
[2024-03-30] MEDS ORDERED: CIPR500T4 PO (07:39)
[2024-03-30] MEDS ORDERED: MAGN296S70 PO (07:51)
[2024-03-30 09:00] VITALS: BP 144/74; PULSE 88; RESP 21; TEMP 98.1; O2SAT 99
== END 2024-03-30 09:01 | disposition home or self-care (01) ==
LOC: MED 04:33
DX: N39.0 Urinary tract infection, site not specified (principal); R33.9 Retention of urine, unspecified; Z79.899 Other long term (current) drug therapy
CPT/HCPCS: 36415; 80048; 81001; 85025; 87086; 96360; 99285; J7030; 87186